=== PATIENT | male | born 1990 | race Caucasian/White ===

== ENCOUNTER 2020-11-04 20:12 | Emergency (ER) | payer OTHER, SELFPAY ==
[2020-11-04 22:43] LABS: Absolute Lymphocytes (CBC) 2.3 K/uL (0.7-4.9); Basophils % 0.8 % (0-1.3); Hematocrit 42.5 % (39.6-49.0); Lymphocytes % 13.6 % (15.3-44.8); MPV 8.6 fL (7.6-11.3); RBC Red Blood Cell Count 5.06 M/uL (4.33-5.43)
[2020-11-04 23:01] LABS: ALT/SGPT 29 U/L (12-78); AST/SGOT 14 U/L (15-37); Albumin 3.7 g/dL (3.4-5.0); Alkaline Phosphatase 119 U/L (45-117); BUN Blood Urea Nitrogen 12 mg/dL (7-18); Bicarbonate 25 mmol/L (21-32); Bilirubin Direct < 0.1 mg/dL (0-0.2); Bilirubin Total 0.2 mg/dL (0.2-1.0); Glucose Level 97 mg/dL (74-106); Lipase 70 U/L (73-393); Magnesium 2.2 mg/dL (1.8-2.4); Potassium 3.9 mmol/L (3.5-5.1); Protein, Total 8.1 g/dL (6.4-8.2); Sodium Level 138 mmol/L (136-145)
[2020-11-04] MEDS ORDERED: ONDANSETRON 4 MG/2 ML VIAL ONE (23:21)
[2020-11-04] MEDS ORDERED: FAMOTIDINE 20 MG/2 ML VIAL IV ONE (23:21)
[2020-11-04] MEDS ORDERED: MORPHINE 4 MG/ML SYR ONE (23:21)
[2020-11-04] MEDS ORDERED: NA CHLORIDE 0.9% 1,000 ML ONE (23:21)
--- NOTE | 2020-11-05 01:05 | ER ---
Nurse's Notes [facility] Name: Alpesh Lancaster Age: 30 yrs Sex: Male : 1990 Arrival Date: 11/04/2020 Time: 20:12 Bed 18 Private MD: Diagnosis: Unspecified abdominal pain Presentation: 11/04 20:28 Chief complaint: Patient states: Mid chest pain for 1 week. Low back pain also. States ll1 when he breathes he smells like poop, and when he vomits it smells like poop. Green, greasy, watery stools. + dizziness. Numb from chest down. States 2 weeks ago he was admitted into [facility] for 4 days for food poisoning and gallbladder problem. Taking budesonide 3mg. Coronavirus screen: Client denies travel out of the [place] in the last 14 days. At this time, the client does not indicate any symptoms associated with coronavirus-19. Ebola Screen: Patient denies travel to an Ebola-affected area in the 21 days before illness onset. Initial Sepsis Screen: Does the patient meet any 2 criteria? HR > 90 bpm. No. Patient's initial sepsis screen is negative. Does the patient have a suspected source of infection? Yes: Acute abdominal pain. Risk Assessment: Do you want to hurt yourself or someone else? Patient reports no desire to harm self or others. Onset of symptoms was October 28, 2020. 20:28 Method Of Arrival: Ambulatory ll1 20:28 Acuity: LUCY 3 ll1 Historical: - Allergies: 20:34 No Known Allergies; ll1 - PMHx: 20:34 gallbladder problems; ll1 - PSHx: 20:34 Appendectomy; ll1 - Immunization history:: Flu vaccine is not up to date. - Social history:: Smoking status: Patient reports the use of cigarette tobacco products, smokes one pack cigarettes per day. Screenin:15 Abuse screen: Denies threats or abuse. Nutritional screening: No deficits noted. jb4 Tuberculosis screening: No symptoms or risk factors identified. Fall Risk None identified. Assessment: 21:20 General: Appears in no apparent distress. uncomfortable, Behavior is calm, cooperative, jb4 appropriate for age. Pain: Complains of pain in abdomen Pain radiates to back Pain currently is 8 out of 10 on a pain scale. Quality of pain is described as burning, stabbing. Neuro: Level of Consciousness is awake, alert, obeys commands, Oriented to person, place, time, situation. Cardiovascular: Patient's skin is warm and dry. Respiratory: Airway is patent Respiratory effort is even, unlabored, Respiratory pattern is regular, symmetrical. GI: Reports upper abdominal pain, diarrhea, nausea, vomiting. : No signs and/or symptoms were reported regarding the genitourinary system. EENT: No signs and/or symptoms were reported regarding the EENT system. Derm: Skin is intact, Skin is pink, warm \T\ dry. Musculoskeletal: Circulation, motion, and sensation intact. Range of motion: intact in all extremities. 22:30 Reassessment: Patient appears in no apparent distress at this time. Patient and/or jb4 family updated on plan of care and expected duration. Pain level reassessed. Patient is alert, oriented x 3, equal unlabored respirations, skin warm/dry/pink. 23:30 Reassessment: Patient appears in no apparent distress at this time. Patient and/or jb4 family updated on plan of care and expected duration. Pain level reassessed. Patient is alert, oriented x 3, equal unlabored respirations, skin warm/dry/pink. 11/05 00:30 Reassessment: Patient appears in no apparent distress at this time. Patient and/or jb4 family updated on plan of care and expected duration. Pain level reassessed. Patient is alert, oriented x 3, equal unlabored respirations, skin warm/dry/pink. 01:30 Reassessment: Pt verbalizes confusion on diagnose, and the need for antibiotics. jb4 Provider notified. Provider at the bedside explaining diagnoses and need for antibiotic medication. 01:45 Reassessment: Patient appears in no apparent distress at this time. Patient and/or jb4 family updated on plan of care and expected duration. Pain level reassessed. Patient is alert, oriented x 3, equal unlabored respirations, skin warm/dry/pink. Vital Signs: 11/04 20:28 BP 144 / 99; Pulse 113; Resp 17; Temp 98.6; Pulse Ox 100% ; Weight 78.93 kg; Height 5 ll1 ft. 7 in. (170.18 cm); Pain 8/10; 23:15 Pulse 99; jb4 23:20 BP 149 / 76; Pulse 99; Resp 16; Pulse Ox 97% on R/A; jb4 11/05 00:45 BP 130 / 67; Pulse 93; Resp 16; Pulse Ox 97% on R/A; jb4 11/04 20:28 Body Mass Index 27.25 (78.93 kg, 170.18 cm) ll1 ED Course: 11/04 20:12 Patient arrived in ED. cl3 20:33 Triage completed. ll1 20:34 Arm band placed on. ll1 20:42 EKG completed in triage. Results shown to MD. ll1 21:14 Ramses Masterson PA is PHCP. cp 21:14 Serafin Alcala MD is Attending Physician. cp 21:20 Patient has correct armband on for positive identification. Placed in gown. Bed in low jb4 position. Call light in reach. Side rails up X 1. 22:08 Miguel Marlow, RN is Primary Nurse. jb4 22:30 Initial lab(s) drawn, by tn, sent to lab. Inserted saline lock: 18 gauge in right jb4 antecubital area, using aseptic technique. Blood collected. 23:19 US Abdomen Limited: liver/gallbladder In Process Unspecified. EDMS 23:59 CT Abd/Pelvis - IV Contrast Only In Process Unspecified. EDMS 11/05 01:04 Blue Townsend MD is Referral Physician. cp 01:30 No provider procedures requiring assistance completed. IV discontinued, intact, jb4 bleeding controlled, No redness/swelling at site. Pressure dressing applied. Administered Medications: 11/04 23:15 Drug: Pepcid 20 mg Route: IVP; Site: right antecubital; jb4 23:15 Drug: NS 0.9% 1000 ml Route: IV; Rate: 1 bolus; Site: right antecubital; jb4 23:16 Drug: Zofran (Ondansetron) 4 mg Route: IVP; Site: right antecubital; jb4 23:18 Drug: morphine 4 mg Route: IVP; Site: right antecubital; jb4 11/05 01:30 Drug: Ciprofloxacin 500 mg Route: PO; jb4 01:44 Not Given (Patient Refused): metroNIDAZOLE 500 mg 100 ml IVPB once over 30 mins jb4 Intake: 11/04 21:00 IV: 1000ml; Total: 1000ml. jb4 Outcome: 11/05 01:05 Discharge ordered by . cp 01:30 Discharged to home ambulatory. jb4 01:30 Condition: stable 01:30 Discharge instructions given to patient, Instructed on discharge instructions, follow up and referral plans. medication usage, Demonstrated understanding of instructions, follow-up care, medications, Prescriptions given X 3. 01:46 Patient left the ED. jb4 Signatures: Dispatcher [employer] EDMS Ramses Masterson PA PA cp Bryson, James, RN RN jb4 Servando Nguyen cl3 Victoria Nguyen RN RN ll1 Corrections: (The following items were deleted from the chart) 11/04 23:36 20:15 General: Appears in no apparent distress. uncomfortable, Behavior is calm, jb4 cooperative, appropriate for age, jb4 23:36 20:15 Pain: Complains of pain in abdomen Pain radiates to back Pain currently is 8 out jb4 of 10 on a pain scale. Quality of pain is described as burning, stabbing, jb4 23:36 20:15 Neuro: Level of Consciousness is awake, alert, obeys commands, Oriented to jb4 person, place, time, situation, jb4 23:36 20:15 Cardiovascular: Patient's skin is warm and dry. jb4 jb4 23:36 20:15 Respiratory: Airway is patent Respiratory effort is even, unlabored, Respiratory jb4 pattern is regular, symmetrical, jb4 23:36 20:15 GI: Reports upper abdominal pain, diarrhea, nausea, vomiting, jb4 jb4 23:36 20:15 : No signs and/or symptoms were reported regarding the genitourinary system. [id number] 23:36 20:15 EENT: No signs and/or symptoms were reported regarding the EENT system. jb4 jb4 23:36 20:15 Derm: Skin is intact, Skin is pink, warm \T\ dry. jb4 jb4 23:36 20:15 Musculoskeletal: Circulation, motion, and sensation intact. Range of motion: jb4 intact in all extremities, jb4 23:36 21:30 Reassessment: Patient appears in no apparent distress at this time. Patient jb4 and/or family updated on plan of care and expected duration. Pain level reassessed. Patient is alert, oriented x 3, equal unlabored respirations, skin warm/dry/pink. jb4
--- NOTE | 2020-11-05 01:05 | EDPHYS ---
Physician Documentation [facility] Name: Alpesh Lancaster Age: 30 yrs Sex: Male : 1990 Arrival Date: 11/04/2020 Time: 20:12 Bed 18 Private MD: ED Physician Serafin Alcala HPI: 11/04 22:00 This 30 yrs old Male presents to ER via Ambulatory with complaints of cp Epigastric and Mid Back Pain. 22:00 The patient presents with abdominal pain in the epigastric area. Onset: The cp symptoms/episode began/occurred 1 week(s) ago. The symptoms radiate to mid back area. Associated signs and symptoms: Pertinent positives: diarrhea, nausea, greasy stools. 22:00 Patient reports being diagnosed with intestinal infection 2 weeks ago while in [facility] and being admitted for 4 days. Currently taking oral budesonide. Historical: - Allergies: 20:34 No Known Allergies; ll1 - PMHx: 20:34 gallbladder problems; ll1 - PSHx: 20:34 Appendectomy; ll1 - Immunization history:: Flu vaccine is not up to date. - Social history:: Smoking status: Patient reports the use of cigarette tobacco products, smokes one pack cigarettes per day. ROS: 22:05 Constitutional: Negative for body aches, chills, fever, poor PO intake. cp 22:05 Eyes: Negative for injury, pain, redness, and discharge. cp 22:05 ENT: Negative for ear pain, sore throat, difficulty swallowing, difficulty handling secretions. 22:05 Cardiovascular: Negative for chest pain, edema, palpitations. 22:05 Respiratory: Negative for cough, shortness of breath, wheezing. 22:05 Abdomen/GI: Positive for abdominal pain, nausea, loose stools, greasy stools, Negative for vomiting, constipation, black/tarry stool, rectal bleeding. 22:05 : Negative for urinary symptoms, testicular pain 22:05 Neuro: Negative for altered mental status, dizziness, headache, weakness. 22:05 All other systems are negative. Exam: 20:45 ECG was reviewed by the Attending Physician. cp 22:10 Constitutional: The patient appears in no acute distress, alert, awake, non-toxic, well cp developed, well nourished. 22:10 Head/Face: Normocephalic, atraumatic. cp 22:10 Eyes: Periorbital structures: appear normal, Conjunctiva: normal, no exudate, no injection, Sclera: no appreciated abnormality, Lids and lashes: appear normal, bilaterally. 22:10 ENT: External ear(s): are unremarkable, Nose: is normal, Mouth: Lips: moist, Oral mucosa: moist, Posterior pharynx: Airway: no evidence of obstruction, patent. 22:10 Chest/axilla: Inspection: normal, Palpation: is normal, no crepitus, no tenderness. 22:10 Cardiovascular: Rate: tachycardic, Rhythm: regular, Edema: is not appreciated, JVD: is not appreciated. 22:10 Respiratory: the patient does not display signs of respiratory distress, Respirations: normal, no use of accessory muscles, no retractions, labored breathing, is not present, Breath sounds: are clear throughout, no decreased breath sounds, no stridor, no wheezing. 22:10 Abdomen/GI: Inspection: abdomen appears normal, Bowel sounds: active, all quadrants, Palpation: soft, in all quadrants, moderate abdominal tenderness, in the epigastric area, rebound tenderness, is not appreciated, involuntary guarding, is not appreciated. 22:10 Back: pain, is absent, ROM is normal. Vital Signs: 20:28 BP 144 / 99; Pulse 113; Resp 17; Temp 98.6; Pulse Ox 100% ; Weight 78.93 kg; Height 5 ll1 ft. 7 in. (170.18 cm); Pain 8/10; 23:15 Pulse 99; jb4 23:20 BP 149 / 76; Pulse 99; Resp 16; Pulse Ox 97% on R/A; jb4 11/05 00:45 BP 130 / 67; Pulse 93; Resp 16; Pulse Ox 97% on R/A; jb4 11/04 20:28 Body Mass Index 27.25 (78.93 kg, 170.18 cm) ll1 MDM: 11/04 21:28 Patient medically screened. cp 23:00 Differential diagnosis: cholecystitis, Cholelithiasis, gastritis, non-specific abd cp pain, pancreatitis, Peptic Ulcer Disease, Perf. Duodenal Ulcer, Perf. Gastric Ulcer, Ureterolithiasis, urinary tract infection. 11/05 01:05 Data reviewed: vital signs, nurses notes, lab test result(s), radiologic studies, CT cp scan. 01:05 Counseling: I had a detailed discussion with the patient and/or guardian regarding: the cp historical points, exam findings, and any diagnostic results supporting the discharge/admit diagnosis, lab results, radiology results, the need for outpatient follow up, for definitive care, a social work therapist, to return to the emergency department if symptoms worsen or persist or if there are any questions or concerns that arise at home. Response to treatment: the patient's symptoms have markedly improved after treatment, VSS. Pain improved. Discussed results of labs and radiology studies, and as a result, I will discharge patient. 11/04 22:05 Order name: Basic Metabolic Panel cp 11/04 22:05 Order name: CBC with Diff cp 11/04 22:05 Order name: Hepatic Function cp 11/04 22:05 Order name: Lipase cp 11/04 22:05 Order name: Magnesium cp 11/04 22:05 Order name: Basic Metabolic Panel; Complete Time: 23:14 EDMS 11/04 22:05 Order name: US Abdomen Limited: liver/gallbladder cp 11/04 22:05 Order name: Liver (Hepatic) Function; Complete Time: 23:14 EDMS 11/04 23:14 Interpretation: Normal except: AST 14; ALK 119; GLOB 4.4; A/G 0.8. cp 11/04 22:05 Order name: CBC with Automated Diff; Complete Time: 23:14 EDMS 11/04 23:14 Interpretation: Normal except: WBC 17.20; AUDREY% 77.2; LYM% 13.6; NEUT A 13.3. cp 11/04 22:05 Order name: Lipase; Complete Time: 23:14 EDMS 11/04 22:05 Order name: Magnesium; Complete Time: 23:14 EDMS 11/04 22:38 Order name: CT Abd/Pelvis - IV Contrast Only cp 11/04 22:05 Order name: IV Saline Lock; Complete Time: 22:42 cp 11/04 22:05 Order name: Labs collected and sent; Complete Time: 22:42 cp 11/05 00:59 Order name: PO challenge; Complete Time: 01:44 cp EC/13 20:45 Rate is 119 beats/min. Rhythm is regular. NH interval is normal. QRS interval is cp normal. QT interval is normal. Interpreted by me. Reviewed by me. Administered Medications: 23:15 Drug: Pepcid 20 mg Route: IVP; Site: right antecubital; jb4 23:15 Drug: NS 0.9% 1000 ml Route: IV; Rate: 1 bolus; Site: right antecubital; jb4 23:16 Drug: Zofran (Ondansetron) 4 mg Route: IVP; Site: right antecubital; jb4 23:18 Drug: morphine 4 mg Route: IVP; Site: right antecubital; jb4 11/05 01:30 Drug: Ciprofloxacin 500 mg Route: PO; jb4 01:44 Not Given (Patient Refused): metroNIDAZOLE 500 mg 100 ml IVPB once over 30 mins jb4 Disposition: 06:47 Co-signature as Attending Physician, Serafin Alcala MD. rn Disposition: 11/05/20 01:05 Discharged to Home. Impression: Unspecified abdominal pain. - Condition is Stable. - Discharge Instructions: Abdominal Pain, Adult. - Prescriptions for Cipro 500 mg Oral Tablet - take 1 tablet by ORAL route every 12 hours for 10 days; 20 tablet. Metronidazole 500 mg Oral Tablet - take 1 tablet by ORAL route every 8 hours; 30 tablet. Bentyl 20 mg Oral Tablet - take 2 tablet by ORAL route every 6 hours As needed; 40 tablet. Zofran 4 mg Oral Tablet - take 1 tablet by ORAL route every 12 hours As needed; 20 tablet. - Medication Reconciliation Form, Thank You Letter, Antibiotic Education, Prescription Opioid Use form. - Follow up: Blue Townsend MD; When: 2 - 3 days; Reason: Recheck today's complaints. - Problem is new. - Symptoms have improved. Signatures: Dispatcher [employer] EDMS Serafin Alcala MD MD rn Page, Corey, PA PA cp Bryson, James RN RN jb4 Victoria Nguyen RN RN ll1 Corrections: (The following items were deleted from the chart) 11/04 22:22 22:00 This 30 yrs old Male presents to ER via Ambulatory with complaints of cp Back Pain, Chest Pain. cp 11/05 01:46 01:05 11/05/2020 01:05 Discharged to Home. Impression: Unspecified abdominal pain. jb4 Condition is Stable. Forms are Medication Reconciliation Form, Thank You Letter, Antibiotic Education, Prescription Opioid Use. Follow up: Blue Townsend; When: 2 - 3 days; Reason: Recheck today's complaints. Problem is new. Symptoms have improved. cp
[2020-11-05] MEDS ORDERED: METRONIDAZOLE 500mg IVPB 0 MG/0 ML BAG IV ONE (01:29)
[2020-11-05] MEDS ORDERED: CIPROFLOXACIN HCL 500 MG TAB ONE (01:29)
[2020-11-05 01:53] VITALS: TEMP 98.6
[2020-11-05 01:55] VITALS: O2SAT 97
[2020-11-05 01:56] VITALS: BP 130/67
[2020-11-05] MEDS ORDERED: NA CHLORIDE 0.9% 0 ML ONE (03:35)
--- NOTE | 2020-11-05 10:28 | RAD REPORT ---
EXAM DESCRIPTION: US - Abdomen Exam Limited - 11/04/2020 11:19 pm CLINICAL HISTORY: ABD PAIN Preliminary findings provided at the time of the study. COMPARISON: No comparisons FINDINGS: Gallbladder is tightly contracted. This accentuates wall thickness. No pericholecystic flu id seen. Gallbladder lumen assessment is limited. However, and this tightly contracted state, no larg e gallstones are present. Small amount of sludge or small sandlike stones could possibly be occult. No common duct stone or biliary tree dilatation identified. IMPRESSION: Gallbladder is tightly contracted. This limits full evaluation of small amounts of slud ge or sandlike stones. No large stones are present. No biliary tree abnormality.
--- NOTE | 2020-11-06 14:16 | RAD REPORT ---
EXAM DESCRIPTION: CT - Abdomen Pelvis W Contrast - 11/05/2020 6:27 am COMPARISON: None. CLINICAL HISTORY: [facility] MAIN EPIGASTRIC PAIN TECHNIQUE: CT of the abdomen and pelvis was acquired with IV contrast material. Coronal and sagitt al reconstructions were obtained. Automated exposure control was utilized on this examination as a dose lowering technique. FINDINGS: Lung bases: Clear. Liver: Normal. Gallbladder and biliary: Normal gallbladder. Unremarkable biliary tree. Pancreas: Normal. Spleen: Normal. Adrenal glands: Normal adrenal glands. Kidneys: Normal kidneys Stomach and Small Bowel: The stomach is normal. There is focal bowel wall thickening in the jejunum w ith mild proximal bowel dilatation. There is wall thickening and enhancement of the ileum. Urinary bladder: Normal. Prostate/Male Urogenital: Normal. Colon and Appendix: The colon is unremarkable. Appendectomy. Retroperitoneum and lymph nodes: Right lower quadrant lymph nodes are increased in number and measure up to 1.1 cm short axis. Vascular: Mild atherosclerosis. Peritoneal cavity: No ascites or free air. Musculoskeletal and soft tissues: Soft tissues are unremarkable. No aggressive bone lesions. No com pression fracture. IMPRESSION: 1. Wall thickening of several loops of small bowel in the jejunum and ileum with enhance ment of the ileum wall. These findings are consistent with infectious or inflammatory enteritis. Croh n's disease is in the differential. Right lower quadrant lymph nodes are likely reactive. 2. Mild atherosclerosis of the aorta. Electronically signed by: Lalito Smith MD 11/05/2020 12:11 AM ASSOCIATE RESEARCH SCIENTIST Due to temporary technical issues with the PACS/Fluency reporting system, reports are being signed by the in house radiologists without review as a courtesy to insure prompt reporting. The interpreting radiologist is fully responsible for the content of the report.
== END 2020-11-05 01:46 | disposition home or self-care (01) ==
LOC: ER 20:12
DX: R10.13 Epigastric pain (principal); F17.210 Nicotine dependence, cigarettes, uncomplicated
CPT/HCPCS: 36415; 74177; 76705; 80048; 80076; 83690; 83735; 85025; 93005; 96374; 96375; 99284; J2405; J7030; Q9967

== ENCOUNTER 2021-08-30 12:53 | Emergency (ER) | payer BC, SELFPAY ==
[2021-08-30] MEDS ORDERED: HYDROCODONE/APAP 5/325 MG TAB ONE (14:18)
[2021-08-30] MEDS ORDERED: TETANUS & DIPHTHERIA TOX,ADULT 0.5 ML VIAL ONE (14:19)
--- NOTE | 2021-08-30 15:07 | EDPHYS ---
Physician Documentation [facility] Name: Alpesh Lancaster Age: 31 yrs Sex: Male : 1990 Arrival Date: 08/30/2021 Time: 12:58 Bed Waiting Private MD: ED Physician Feng Thapa HPI: 08/30 14:15 This 31 yrs old Male presents to ER via Ambulatory with complaints of Infected finger. ma2 14:15 The patient or guardian reports a contusion. Onset: The symptoms/episode began/occurred ma2 suddenly, 5 day(s) ago. Associated signs and symptoms: Pertinent negatives: fever, numbness distally, vomiting. Severity of symptoms: At their worst the symptoms were very mild, in the emergency department the symptoms are unchanged. The patient has not experienced similar symptoms in the past. Patient smashed right index finger at the nail, 5 days ago here with nail pain, mild redness, no swelling or warmth.. Historical: - Allergies: 14:06 No Known Allergies; iw - Home Meds: 14:06 None [Active]; iw - PMHx: 14:06 gallbladder problems; iw - PSHx: 14:06 Appendectomy; iw - Immunization history:: Last tetanus immunization: unknown. - Social history:: Patient/guardian denies using alcohol, street drugs, The patient lives with family. - Family history:: not pertinent. ROS: 14:15 Constitutional: Negative for fever, chills, and weight loss. ma2 14:15 All other systems are negative. Exam: 14:15 Constitutional: This is a well developed, well nourished patient who is awake, alert, ma2 and in no acute distress. ENT: Nares patent. No nasal discharge, no septal abnormalities noted. Tympanic membranes are normal and external auditory canals are clear. Oropharynx with no redness, swelling, or masses, exudates, or evidence of obstruction, uvula midline. Mucous membranes moist. Neck: Trachea midline, no thyromegaly or masses palpated, and no cervical lymphadenopathy. Supple, full range of motion without nuchal rigidity, or vertebral point tenderness. No Meningismus. Chest/axilla: Normal chest wall appearance and motion. Nontender with no deformity. No lesions are appreciated. Cardiovascular: Regular rate and rhythm with a normal S1 and S2. No gallops, murmurs, or rubs. Normal PMI, no JVD. No pulse deficits. Respiratory: Lungs have equal breath sounds bilaterally, clear to auscultation and percussion. No rales, rhonchi or wheezes noted. No increased work of breathing, no retractions or nasal flaring. Abdomen/GI: Soft, non-tender, with normal bowel sounds. No distension or tympany. No guarding or rebound. No evidence of tenderness throughout. Skin: Warm, dry with normal turgor. Normal color with no rashes, no lesions, and no evidence of cellulitis. MS/ Extremity: Contusion of the right third distal digit, there is no warmth, or lump with fluctuance, otherwise pulses equal, no cyanosis. Neurovascular intact. Full, normal range of motion. Neuro: Awake and alert, GCS 15, oriented to person, place, time, and situation. Cranial nerves II-XII grossly intact. Motor strength 5/5 in all extremities. Sensory grossly intact. Cerebellar exam normal. Normal gait. Vital Signs: 14:04 BP 116 / 98; Pulse 91; Resp 16; Temp 98.0; Pulse Ox 100% on R/A; iw MDM: 14:15 Differential diagnosis: open fracture, closed fracture, contusion, abrasion, tendonitis.ma2 15:06 Data reviewed: vital signs, nurses notes, EMS record. Counseling: I had a detailed ma2 discussion with the patient and/or guardian regarding: the historical points, exam findings, and any diagnostic results supporting the discharge/admit diagnosis, the presence of at least one elevated blood pressure reading (>120/80) during this emergency department visit, the need for outpatient follow up. Response to treatment: the patient's symptoms have markedly improved after treatment. 15:07 Patient medically screened. ma2 08/30 14:14 Order name: Hand Right 3 View XRAY ma2 Administered Medications: 14:22 Drug: Tetanus-Diphtheria Toxoid Adult 0.5 ml {Bag Bundler: [employer]. Exp: iw 01/05/2023. Lot #: [id number]. } Route: IM; Site: right deltoid; 15:31 Follow up: Response: No adverse reaction vg1 14:22 Drug: HYDROcodone-acetaminophen 5 mg-325 mg 1 tabs Route: PO; iw 15:31 Follow up: Response: No adverse reaction; Pain is decreased vg1 14:23 Drug: Clindamycin 300 mg Route: PO; iw 15:30 Follow up: Response: No adverse reaction vg1 Disposition Summary: 08/30/21 15:07 Discharge Ordered Location: Home ma2 Condition: Stable ma2 Diagnosis - Cellulitis of finger - right index ma2 Followup: ma2 - With: Private Physician - When: Tomorrow - Reason: If symptoms return, Continuance of care Discharge Instructions: - Discharge Summary Sheet ma2 - Cellulitis, Adult, [id number] ma2 Forms: - Medication Reconciliation Form ma2 - Thank You Letter ma2 - Antibiotic Education ma2 - Prescription Opioid Use ma2 Prescriptions: - Clindamycin HCl 300 mg Oral Capsule - take 1 capsule by ORAL route every 6 hours for 10 days; 40 capsule; Refills: 0, ma2 Product Selection Permitted - Diclofenac Sodium 75 mg Oral Tablet Sustained Release - take 1 tablet by ORAL route 2 times per day; 30 tablet; Refills: 0, Product ma2 Selection Permitted Signatures: Dispatcher [employer] Liza Parsons, MELLISA RN Feng Thapa MD MD ma2 Rosaura Dennis RN vg1 Corrections: (The following items were deleted from the chart) 14:07 14:06 PSHx: None; iw
--- NOTE | 2021-08-30 15:07 | ER ---
Nurse's Notes [facility] Name: Alpesh Lancaster Age: 31 yrs Sex: Male : 1990 Arrival Date: 08/30/2021 Time: 12:58 Bed Waiting Private MD: Diagnosis: Cellulitis of finger-right index Presentation: 08/30 14:04 Chief complaint: Patient states: smashed his right index finger between a piece of iw equipment two weeks ago, has not been able to see a doctor since then, has pain and swelling to tip of finger, pus came out of it yesterday when he clipped his nail. Coronavirus screen: At this time, the client does not indicate any symptoms associated with coronavirus-19. Ebola Screen: Patient negative for fever greater than or equal to 101.5 degrees Fahrenheit, and additional compatible Ebola Virus Disease symptoms Patient denies exposure to infectious person. Patient denies travel to an Ebola-affected area in the 21 days before illness onset. No symptoms or risks identified at this time. Initial Sepsis Screen: Does the patient meet any 2 criteria? No. Patient's initial sepsis screen is negative. Does the patient have a suspected source of infection? No. Patient's initial sepsis screen is negative. Risk Assessment: Do you want to hurt yourself or someone else? Patient reports no desire to harm self or others. Onset of symptoms was August 19, 2021. 14:04 Method Of Arrival: Ambulatory iw 14:07 Acuity: LUCY 4 iw Historical: - Allergies: 14:06 No Known Allergies; iw - Home Meds: 14:06 None [Active]; iw - PMHx: 14:06 gallbladder problems; iw - PSHx: 14:06 Appendectomy; iw - Immunization history:: Last tetanus immunization: unknown. - Social history:: Patient/guardian denies using alcohol, street drugs, The patient lives with family. - Family history:: not pertinent. Screenin:25 Abuse screen: Denies threats or abuse. Denies injuries from another. Nutritional iw screening: No deficits noted. Tuberculosis screening: No symptoms or risk factors identified. Fall Risk None identified. Assessment: 14:24 General: Appears in no apparent distress. Behavior is calm, cooperative. Pain: iw Complains of pain in dorsal aspect of distal phalanx of right ring finger and palmar aspect of distal phalanx of right index finger. Neuro: Level of Consciousness is awake, alert, obeys commands, Oriented to person, place, time, situation, Moves all extremities. Full function. Cardiovascular: Capillary refill < 3 seconds Patient's skin is warm and dry. Respiratory: Respiratory effort is even, unlabored, Respiratory pattern is regular, symmetrical. Derm: Skin is intact, is healthy with good turgor. Musculoskeletal: Range of motion: intact in all extremities. Vital Signs: 14:04 BP 116 / 98; Pulse 91; Resp 16; Temp 98.0; Pulse Ox 100% on R/A; iw ED Course: 12:58 Patient arrived in ED. mr 14:07 Triage completed. iw 14:07 Arm band placed on. iw 14:14 Feng Thapa MD is Attending Physician. [facility] 14:22 Liza Jmi RN is Primary Nurse. iw 14:59 Hand Right 3 View XRAY In Process Unspecified. EDMS 15:35 No provider procedures requiring assistance completed. Patient did not have IV access vg1 during this emergency room visit. 15:36 Patient has correct armband on for positive identification. 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 Exp: 01/05/2023. Lot #: [id number]. } Route: IM; Site: right deltoid; 15:31 Follow up: Response: No adverse reaction vg1 14:22 Drug: HYDROcodone-acetaminophen 5 mg-325 mg 1 tabs Route: PO; iw 15:31 Follow up: Response: No adverse reaction; Pain is decreased vg1 14:23 Drug: Clindamycin 300 mg Route: PO; iw 15:30 Follow up: Response: No adverse reaction vg1 Outcome: 15:07 Discharge ordered by . ma2 15:35 Discharged to home ambulatory, with family. vg1 15:35 Condition: good 15:35 Discharge instructions given to patient, family, Instructed on discharge instructions, follow up and referral plans. medication usage, Demonstrated understanding of instructions, follow-up care, medications, Prescriptions given X 2. 15:36 Patient left the ED. vg1 Signatures: Dispatcher [employer] [facility] Sharlene Oshea mr Liza Jim, RN RN Feng Thapa MD MD ma2 Garcia Rosaura, RN RN vg1 Corrections: (The following items were deleted from the chart) 14:06 PSHx: None; iw iw 14: 14:04 BP 116 / 98; Pulse 91bpm; Resp 16bpm; Pulse Ox 100% RA; iw iw
--- NOTE | 2021-08-30 15:14 | RAD REPORT ---
EXAM DESCRIPTION: RAD - Hand Right 3 View - 08/30/2021 2:59 pm CLINICAL HISTORY: PAIN, persistent pain following trauma 1 week earlier, specific site of injury not indicated, prior history of thumb fracture COMPARISON: No comparisons FINDINGS: No acute or subacute fracture changes seen. There is no dislocation or periosteal reaction noted. No joint space narrowing or acute joint finding identifiable. Hyperdense material is seen yudith ng the nail bed of the first and second digits believed to be dirt or other skin contaminant. No fore ign body or significant soft tissue abnormality. IMPRESSION: Negative right hand examination for acute or subacute bone process.
[2021-08-30 15:42] VITALS: BP 116/98; TEMP 98; O2SAT 100
== END 2021-08-30 15:36 | disposition home or self-care (01) ==
LOC: ER 12:53
DX: L03.011 Cellulitis of right finger (principal); Z23 Encounter for immunization
CPT/HCPCS: 90471; 90714; 99283

== ENCOUNTER 2022-04-15 19:46 | Emergency (ER) | payer BC ==
--- NOTE | 2022-04-15 22:15 | RAD REPORT ---
EXAM DESCRIPTION: RAD - Shoulder Right 2 View - 04/15/2022 10:04 pm CLINICAL HISTORY: Right shoulder pain FINDINGS: No fracture or dislocation is seen. No bone or joint abnormality noted
[2022-04-15 23:39] LABS: Absolute Lymphocytes (CBC) 3.6 K/uL (0.7-4.9); Hematocrit 39.1 % (39.6-49.0); Lymphocytes % 39.3 % (15.3-44.8); MCV 89.6 fL (80-100); MPV 8.1 fL (7.6-11.3); RBC Red Blood Cell Count 4.36 M/uL (4.33-5.43)
[2022-04-15 23:51] LABS: ALT/SGPT 24 U/L (12-78); AST/SGOT 8 U/L (15-37); Albumin 3.4 g/dL (3.4-5.0); Alkaline Phosphatase 76 U/L (45-117); BUN Blood Urea Nitrogen 12 mg/dL (7-18); Bicarbonate 30 mmol/L (21-32); Bilirubin Total < 0.1 mg/dL (0.2-1.0); Glomerular Filtration Rate 119 ml/min (=/>90); Glucose Level 125 mg/dL (74-106); Lipase 90 U/L (73-393); Potassium 3.9 mmol/L (3.5-5.1); Protein, Total 6.9 g/dL (6.4-8.2); Sodium Level 141 mmol/L (136-145); Troponin High Sensitivity 3.3 pg/mL (<58.9)
--- NOTE | 2022-04-16 02:01 | ER ---
Nurse's Notes [facility] Name: Alpesh Lancaster Age: 31 yrs Sex: Male : 1990 Arrival Date: 04/15/2022 Time: 19:56 Bed 12 Private MD: Diagnosis: Chest pain, unspecified;Abdominal pain, unspecified Presentation: 04/15 20:22 Chief complaint: Patient states: Pt reports feeling unwell for the last 2 months. kb3 States he has pain in his right upper chest that radiates into right scapula. Pt reports vomiting after eating with "gooey" chalk-colored stool. Coronavirus screen: Vaccine status: Patient reports being unvaccinated. Client denies travel out of the [place] in the last 14 days. Ebola Screen: Patient negative for fever greater than or equal to 101.5 degrees Fahrenheit, and additional compatible Ebola Virus Disease symptoms Patient denies exposure to infectious person. Patient denies travel to an Ebola-affected area in the 21 days before illness onset. No symptoms or risks identified at this time. Initial Sepsis Screen: Does the patient meet any 2 criteria? No. Patient's initial sepsis screen is negative. Does the patient have a suspected source of infection? No. Patient's initial sepsis screen is negative. Risk Assessment: Do you want to hurt yourself or someone else? Patient reports no desire to harm self or others. Onset of symptoms is unknown. 20:22 Method Of Arrival: Ambulatory kb3 20:22 Acuity: LUCY 3 kb3 Triage Assessment: 20:25 General: Appears in no apparent distress. comfortable, Behavior is calm, cooperative. kb3 Pain: Complains of pain in anterior aspect of right upper chest Pain radiates to right scapular area Pain currently is 10 out of 10 on a pain scale. Quality of pain is described as burning. GI: Reports nausea, vomiting. Historical: - Allergies: 20:25 No Known Allergies; kb3 - Home Meds: 20:25 None [Active]; kb3 - PMHx: 20:25 gallbladder problems; kb3 - PSHx: 20:25 Appendectomy; kb3 - Immunization history:: Adult Immunizations up to date, Client reports having NOT received the Covid vaccine. Last tetanus immunization: up to date. - Social history:: Smoking status: Patient reports the use of cigarette tobacco products, denies chronic smoking, but will smoke occasionally, Patient uses alcohol, only on a social basis. Patient/guardian denies using street drugs. Screenin:30 Abuse screen: Denies threats or abuse. Denies injuries from another. Nutritional tw5 screening: No deficits noted. Tuberculosis screening: No symptoms or risk factors identified. Fall Risk None identified. Assessment: 23:25 General: Reports "I just need someone to take out my gallbladder. I have been dealing tw5 with this pain for years now and it is only getting worse. It has gotten to the point I cannot even taste anything normal everything tastes like crap, literally. This is a miserable.". 23:30 Pain: Complains of pain in diaphragm Pain radiates to right supraclavicular area, right tw5 clavicle and anterior aspect of right upper chest Pain currently is 10 out of 10 on a pain scale. Cardiovascular: Capillary refill < 3 seconds Rhythm is sinus rhythm. Respiratory: Airway is patent Trachea midline. 04/16 02:24 GI: Bowel sounds present X 4 quads. Abdomen is tender to palpation in epigastric area tw5 and right upper quadrant. Vital Signs: 04/15 20:22 BP 138 / 80; Pulse 91; Resp 18; Temp 99.1; Pulse Ox 100% ; Weight 81.65 kg; Height 5 kb3 ft. 8 in. (172.72 cm); Pain 10/10; 23:30 BP 123 / 73; Pulse 80; Resp 18; Pulse Ox 100% on R/A; tw5 20:22 Body Mass Index 27.37 (81.65 kg, 172.72 cm) kb3 ED Course: 19:56 Patient arrived in ED. jj6 20:25 Triage completed. kb3 20:25 Arm band placed on right wrist. kb3 20:40 Ramses Masterson PA is PHCP. cp 20:40 Ramses Paul MD is Attending Physician. cp 21:25 Arlen Fink is Primary Nurse. tw5 22:07 XRAY Shoulder RIGHT 2 view In Process Unspecified. EDMS 23:30 Patient has correct armband on for positive identification. Placed in gown. Bed in low tw5 position. Call light in reach. Side rails up X 1. Pulse ox on. NIBP on. Door closed. Warm blanket given. Verbal reassurance given. 23:30 Initial lab(s) drawn, by me, sent to lab. Inserted saline lock: 20 gauge in right tw5 antecubital area, using aseptic technique. Blood collected. 23:33 CBC with Diff Sent. tw 23:33 CMP Sent. tw5 23:33 Lipase Sent. tw5 04/16 00:03 CT Abd/Pelvis - IV Contrast Only In Process Unspecified. EDMS 02:00 Blue Townsend MD is Referral Physician. cp 02:23 No provider procedures requiring assistance completed. IV discontinued, intact, tw5 bleeding controlled, No redness/swelling at site. Pressure dressing applied. Administered Medications: No medications were administered Medication: 04/15 23:30 VIS not applicable for this client. tw Outcome: 04/16 02:01 Discharge ordered by . cp 02:24 Discharged to home ambulatory. tw5 02:24 Condition: good 02:24 Discharge instructions given to patient, Instructed on discharge instructions, follow up and referral plans. Demonstrated understanding of instructions, follow-up care, medications, Prescriptions given X 2. 02:24 Patient left the ED. tw Signatures: Dispatcher [employer] EDCO Ramses Masterson PA PA cp Wood, Tiffany tw Justina Mancia jj6 Kalpana Jorgensen, RN RN kb3 Corrections: (The following items were deleted from the chart) 04/15 23:32 23:25 General: Reports tw5 tw
--- NOTE | 2022-04-16 02:01 | EDPHYS ---
Physician Documentation [facility] Name: Alpesh Lancaster Age: 31 yrs Sex: Male : 1990 Arrival Date: 04/15/2022 Time: 19:56 Bed 12 Private MD: ED Physician Ramses Paul HPI: 04/15 21:45 This 31 yrs old Male presents to ER via Ambulatory with complaints of Abdominal Pain, cp Bloody Stools, Abnormal Taste. 21:45 The patient presents with abdominal pain in the upper abdomen. Onset: The cp symptoms/episode began/occurred 2 month(s) ago. 21:45 Associated signs and symptoms: Pertinent positives: vomiting after eating, chalky cp colored stool. 21:45 Patient reports he was hospitalized and treated for infected gallbladder in the past. cp Historical: - Allergies: 20:25 No Known Allergies; kb3 - Home Meds: 20:25 None [Active]; kb3 - PMHx: 20:25 gallbladder problems; kb3 - PSHx: 20:25 Appendectomy; kb3 - Immunization history:: Adult Immunizations up to date, Client reports having NOT received the Covid vaccine. Last tetanus immunization: up to date. - Social history:: Smoking status: Patient reports the use of cigarette tobacco products, denies chronic smoking, but will smoke occasionally, Patient uses alcohol, only on a social basis. Patient/guardian denies using street drugs. ROS: 21:50 Constitutional: Positive for weight loss, Negative for body aches, chills, fever, poor cp PO intake. 21:50 Cardiovascular: Negative for chest pain, edema, palpitations. cp 21:50 Respiratory: Negative for cough, shortness of breath, wheezing. 21:50 Abdomen/GI: Positive for abdominal pain. 21:50 MS/extremity: Positive for pain, of the right shoulder, Negative for injury or acute deformity, decreased range of motion, paresthesias. 21:50 Eyes: Negative for injury, pain, redness, and discharge. cp 21:50 ENT: Negative for drainage from ear(s), ear pain, sore throat, difficulty swallowing, cp difficulty handling secretions. 21:50 Neuro: Negative for altered mental status, headache, syncope. 21:50 All other systems are negative. Exam: 21:55 Constitutional: The patient appears in no acute distress, alert, awake, comfortable, cp non-diaphoretic, non-toxic, well developed, well nourished. 21:55 Head/Face: Normocephalic, atraumatic. cp 21:55 Eyes: Periorbital structures: appear normal, Conjunctiva: normal, no exudate, no injection, Sclera: no appreciated abnormality, Lids and lashes: appear normal, bilaterally. 21:55 ENT: External ear(s): are unremarkable, Nose: is normal, Mouth: Lips: moist, Oral mucosa: moist, Posterior pharynx: Airway: no evidence of obstruction, patent. 21:55 Neck: ROM/movement: is normal, is supple, without pain, no range of motions limitations. 21:55 Chest/axilla: Inspection: normal, Palpation: is normal, no crepitus, no tenderness. 21:55 Cardiovascular: Rate: normal, Rhythm: regular, Edema: is not appreciated, JVD: is not appreciated. 21:55 Respiratory: the patient does not display signs of respiratory distress, Respirations: normal, no use of accessory muscles, no retractions, labored breathing, is not present, Breath sounds: are clear throughout, no decreased breath sounds, no stridor, no wheezing. 21:55 Abdomen/GI: Inspection: abdomen appears normal, Bowel sounds: active, all quadrants, Palpation: abdomen is soft and non-tender, in all quadrants, rebound tenderness, is not appreciated, voluntary guarding, is not appreciated, involuntary guarding, is not appreciated. 21:55 Back: CVA tenderness, is absent. 21:55 Neuro: Orientation: to person, place \T\ time. Mentation: is normal, Motor: moves all fours, strength is normal, Sensation: is normal. 23:20 ECG was reviewed by the Attending Physician. cp Vital Signs: 20:22 BP 138 / 80; Pulse 91; Resp 18; Temp 99.1; Pulse Ox 100% ; Weight 81.65 kg; Height 5 kb3 ft. 8 in. (172.72 cm); Pain 10/10; 23:30 BP 123 / 73; Pulse 80; Resp 18; Pulse Ox 100% on R/A; tw5 20:22 Body Mass Index 27.37 (81.65 kg, 172.72 cm) kb3 MDM: 21:25 Patient medically screened. cp 04/16 02:00 Data reviewed: vital signs, nurses notes, lab test result(s), EKG, radiologic studies, cp CT scan. 02:00 Test interpretation: by ED physician or midlevel provider: ECG, plain radiologic cp studies. Counseling: I had a detailed discussion with the patient and/or guardian regarding: the historical points, exam findings, and any diagnostic results supporting the discharge/admit diagnosis, lab results, radiology results, the need for outpatient follow up, a family practitioner, a medical researcher, to return to the emergency department if symptoms worsen or persist or if there are any questions or concerns that arise at home. Special discussion: Based on the patient's Hx, exam, and Dx evaluation, there is no indication for emergent surgery or inpatient Tx. It is understood by the patient/guardian that if the Sx's persist or worsen they need to return immediately for re-evaluation. 04/15 21:40 Order name: CBC with Diff; Complete Time: 00:44 04/16 00:44 Interpretation: Normal except: HGB 13.1; HCT 39.1; MCV 89.6. 04/15 21:40 Order name: CMP; Complete Time: 00:44 04/16 00:45 Interpretation: Normal except: CL 109; GLUC 125; CA 8.3. 04/15 21:40 Order name: Lipase; Complete Time: 00:44 04/16 00:45 Interpretation: Reviewed. 04/15 21:40 Order name: Urine Microscopic Only cp 04/15 21:40 Order name: Troponin HS; Complete Time: 00:44 cp 04/16 00:39 Order name: CREATININE WHOLE BLOOD; Complete Time: 00:44 EDMS 04/15 21:40 Order name: IV Saline Lock; Complete Time: 23:33 cp 04/15 21:40 Order name: Labs collected and sent; Complete Time: 23:33 cp 04/15 21:40 Order name: Urine Dipstick-Ancillary (obtain specimen); Complete Time: 02:03 04/15 21:40 Order name: EKG; Complete Time: 21:41 cp 04/15 21:40 Order name: EKG - Nurse/Tech; Complete Time: 23:33 cp 04/15 21:40 Order name: XRAY Shoulder RIGHT 2 view; Complete Time: 00:44 04/16 00:45 Interpretation: Reviewed. cp 04/15 22:07 Order name: CT Abd/Pelvis - IV Contrast Only cp 04/16 02:05 Order name: Urine Dipstick-Ancillary; Complete Time: 02:13 EDMS EC/22 23:20 Rate is 73 beats/min. Rhythm is regular. IN interval is normal. QRS interval is normal. cp QT interval is normal. T waves are Inverted in lead aVR. Interpreted by me. Reviewed by me. Administered Medications: No medications were administered Disposition Summary: 04/16/22 02:01 Discharge Ordered Location: Home cp Problem: an ongoing problem cp Symptoms: are unchanged cp Condition: Stable cp Diagnosis - Chest pain, unspecified cp - Abdominal pain, unspecified cp Followup: cp - With: Private Physician - When: 2 - 3 days - Reason: Recheck today's complaints Followup: cp - With: Blue Townsend MD - When: 2 - 3 days - Reason: Recheck today's complaints Discharge Instructions: - Discharge Summary Sheet cp - Abdominal Pain, Adult cp - Nonspecific Chest Pain, Adult cp - Gallbladder Nuclear Scan cp Forms: - Medication Reconciliation Form cp - Thank You Letter cp - Antibiotic Education cp - Prescription Opioid Use cp Prescriptions: - Protonix 40 mg Oral Tablet - take 1 tablet by ORAL route once daily; 30 tablet; Refills: 0, Product cp Selection Permitted - Zofran 4 mg Oral Tablet - take 1 tablet by ORAL route every 12 hours As needed; 20 tablet; Refills: 0, cp Product Selection Permitted Signatures: Dispatcher [employer] EDMS Ramses Masterson PA PA cp Bradberry, Kelly, RN RN kb3
[2022-04-16 02:05] LABS: Urine Blood Trace-lysed (Negative); Urine Glucose Negative (Negative); Urine Protein Negative (Negative); Urine Specific Gravity >=1.030 (1.005-1.030)
[2022-04-16 02:30] LABS: Urine Bacteria <20 /HPF (<20); Urine RBC <5 /HPF (None Seen)
[2022-04-16 05:19] VITALS: TEMP 99.1; O2SAT 100
[2022-04-16 05:21] VITALS: BP 123/73
--- NOTE | 2022-04-16 10:11 | RAD REPORT ---
EXAM DESCRIPTION: CT - Abdomen Pelvis W Contrast - 04/16/2022 6:45 am CLINICAL HISTORY: The patient is 31 years old and is Male; diarrhea TECHNIQUE: Axial computed tomography images of the abdomen and pelvis with intravenous contrast. S agittal and coronal reformatted images were created and reviewed. This CT exam was performed using one or more of the following dose reduction techniques: automated exposure control, adjustment of t he mA and/or kV according to patient size, and/or use of iterative reconstruction technique. COMPARISON: November 04, 2020. FINDINGS: Lung bases: Unremarkable. No mass. No consolidation. ABDOMEN: Liver: Unremarkable. No mass. Gallbladder and bile ducts: Unremarkable. No calcified stones. No ductal dilation. Pancreas: Unremarkable. No mass. No ductal dilation. Spleen: Unremarkable. No splenomegaly. Adrenals: Unremarkable. No mass. Kidneys and ureters: Unremarkable. No solid mass. No hydronephrosis. Stomach and bowel: There may be some mucosal thickening involving the small bowel in the upper ab domen. Scattered colonic diverticula. No obstruction. PELVIS: Appendix: Postsurgical changes in the right lower quadrant which may relate to prior appendectomy . Bladder: Unremarkable. No mass. Reproductive: Unremarkable as visualized. ABDOMEN and PELVIS: Intraperitoneal space: Unremarkable. No free air. No significant fluid collection. Bones/joints: Disc bulges in the lower lumbar spine. No acute fracture. No dislocation. Soft tissues: Unremarkable. Vasculature: Unremarkable. No abdominal aortic aneurysm. Lymph nodes: Unremarkable. No enlarged lymph nodes. IMPRESSION: There may be some mucosal thickening involving the small bowel in the upper abdomen. C orrelate with any concern for enteritis. Electronically signed by: Rusty Pete MD 04/16/2022 12:55 AM CDT Due to temporary technical issues with the PACS/Fluency reporting system, reports are being signed by the in house radiologists without review as a courtesy to insure prompt reporting. The interpreting radiologist is fully responsible for the content of the report
--- NOTE | 2022-04-16 13:49 | EKG ---
Test Date: 2022-04-15 Test Time: 23:14:06 Cook Larder: MEASUREMENT RESULTS: Intervals: Rate: 73 MI: 154 QRSD: 80 QT: 370 QTc: 407 [place]: P: 41 MI: 154 QRS: 47 T: 41 INTERPRETIVE STATEMENTS: Normal sinus rhythm Normal ECG Compared to ECG 11/04/2020 20:40:40 Sinus tachycardia no longer present Electronically Signed On 04-16-22 13:48:00 CDT by Justin Agosto
== END 2022-04-16 02:24 | disposition home or self-care (01) ==
LOC: ER 19:46
DX: R07.9 Chest pain, unspecified (principal); R10.10 Upper abdominal pain, unspecified; F17.210 Nicotine dependence, cigarettes, uncomplicated
CPT/HCPCS: 93005; 85025; 36415; 82565; 84484; 83690; 80053; 74177; 73030; Q9967; 81003; 81015; 99284

== ENCOUNTER 2022-07-26 17:55 | Emergency (ER) | payer SELFPAY ==
--- OUTSIDE RECORDS SUMMARY | 2022-07-26 18:03 | XMS REPORT | Continuity of Care Document ---
:1990 Author Organization [facility] t Address [address] [place] [address] Care Team Providers Name Role Phone PCP, PATIENT DOES NOT HAVE A Primary Care Physician Unavaila ble Joni VANEGAS Attending Clinician Unavailable Joni Appiah Attending Clinician Ceferino BANGURA, Vasile Crowe Attending Clinician Joni VANEGAS Admitting Clinician Unavailable Payers Payer Name Policy Type Policy Number Effective Date Expiration Date S [facility] - [id number] 2021 00:00:00 OUT OF STATE Problems This patient has no known problems. Allergies, Adverse Reactions, Alerts Allergy Allergy Status Severity Reaction(s) Onset Inactive Treating Comm ents Source Name Type Date Date Clinician NO KNOWN Drug Active Univers ALLERGIE Class ity of [facility] Social History Social Habit Start Date Stop Date Quantity Comments Source History of Smokes tobacco [facility] tobacco use daily Exposure to 2022-04-13 2022-04-23 Not sure University of SARS-CoV-2 00:00:00 13:24:00 [place] [facility] Tobacco use and 2022-04-17 2022-04-17 Smokeless tobacco [facility] exposure 00:00:00 00:00:00 non-user Alcohol intake 2022-04-17 2022-04-17 Current drinker [facility] 00:00:00 00:00:00 of alcohol (finding) Sex Assigned At [address] [facility] 00:00:00 00:00:00 Smoking Status Start Date Stop Date Source Tobacco smoking consumption [facility] Medical unknown Branch Smokes tobacco daily 2022-04-17 00:00:00 [facility] Medications Ordered Filled Start Stop Current Ordering Indication Dosage Frequency Signature Comments Components Source Medication Medication Date Date Medication? Clinician (SIG) Name Name iopamidol No [id number] 66mL 66 mL, Univers (ISOVUE 04-23 Intravenou ity o f 370-500 mL) 21:45: 21:36 s, ONCE, 1 [place] injection 00 :00 dose, On Medica l 66 mL [facility] 04/23/22 at 1645, Routine NaCl 0.9% No 1000mL at 999 Uni vers (NS) bolus 04-23 mL/hr, ity of infusion 19:45: 20:15 1,000 mL, Willis as 1,000 mL 00 :00 IV Medical Infusion, Branch ONCE, 1 dose, On 04/23/22 at 1445, STAT ondansetron 2021- No 4mg 4 mg, Slow Univers (ZOFRAN 04-23 IV Push, ity of (PF)) 19:45: 19:09 ONCE, 1 [place] injection 4 00 :00 dose, On Medi ricki mg [facility] 04/23/22 at 1445, SAMMY morpHINE (2 No 4mg 4 mg, Slow Univers mg/mL) 04-23 IV Push, ity of injection 4 19:45: 19:09 [place] dose, On Medical Tue Branch 04/23/22 at 1445, STAT ondansetron 2021- No 4mg Q8H Take 1 Met hodi ODT 04-17 tablet (4 st (ZOFRAN-ODT 00:00: 04:59 mg total) Hospita ) 4 MG 00 :00 by mouth l disintegrat every 8 ing tablet (eight) hours as needed for nausea or vomiting for up to 30 days. No known 2014-08 No No known [facility] medications 0-15 medication it y of 22:24: s [address] Immunizations Ordered Filled Immunization Date Status Comments Sour e Immunization Name Name Td 2015-06-08 Completed [facility] 00:00:00 [facility] Vital Signs Vital Name Observation Time Observation Value Comments Source Systolic blood 2022-04-23 23:00:00 127 mm[Hg] Univer sity of [facility] Diastolic blood 2022-04-23 23:00:00 72 mm[Hg] Unive ity [facility] Heart rate 2022-04-23 23:00:00 86 /min [facility] Oxygen saturation in 2022-04-23 23:00:00 98 /min [facility] Arterial blood by [facility] Pulse oximetry [place] Body temperature 2022-04-23 22:00:00 36.83 Joelle [facility] Respiratory rate 2022-04-23 22:00:00 21 /min [facility] Body height 2022-04-23 18:27:00 172.7 cm [facility] Body weight 2022-04-23 18:27:00 74.844 kg [facility] BMI 2022-04-23 18:27:00 25.09 kg/m2 [facility] Systolic blood 2022-04-17 21:30:00 124 mm[Hg] [facility] Diastolic blood 2022-04-17 21:30:00 60 mm[Hg] [facility] pressure Heart rate 2022-04-17 21:30:00 88 /min [facility] Respiratory rate 2022-04-17 21:30:00 16 /min [facility] Oxygen saturation in 2022-04-17 21:30:00 98 /min [facility] Arterial blood by Pulse oximetry Body temperature 2022-04-17 20:35:00 36.67 Joelle [facility] Body height 2022-04-17 20:35:00 172.1 cm [facility] Body weight 2022-04-17 20:35:00 81.647 kg [facility] BMI 2022-04-17 20:35:00 27.57 kg/m2 [facility] Procedures Procedure Date / Time Performing Clinician Source Performed CT ABDOMEN PELVIS W 2022-04-23 21:38:44 Joni Vanegas [facility] CONTRAST Medical Branch US GALL BLADDER 2022-04-23 19:43:11 Joni Vanegas [facility] URINALYSIS 2022-04-23 19:08:00 Joni Vanegas [facility] LACTIC ACID WHOLE BLOOD 2022-04-23 18:54:00 Joni Vanegas [facility] BLOOD CULTURE SCREEN 2022-04-23 18:53:00 Joni Vanegas [facility] LIPASE 2022-04-23 18:53:00 Joni Vanegas [facility] MAGNESIUM 2022-04-23 18:53:00 Joni Vanegas [facility] COMP. METABOLIC PANEL 2022-04-23 18:53:00 Joni Vanegas [facility] ([id number]) [facility] CBC WITH DIFF 2022-04-23 18:53:00 Joni Vanegas [facility] NOTICE OF PRIVACY 2022-04-23 18:20:42 Doctor Unassigned, No Univ [facility] PRACTICES Name [facility] CONSENT/REFUSAL FOR 2022-04-23 18:06:38 Doctor Unassigned, No [facility] Name [facility] ED REFERRAL TO VAN 2022-04-17 21:54:13 [facility] [place] ORGANIZATION (PCP) CT ABDOMEN PELVIS WO 2022-04-17 21:40:45 Luis Carlos Renteria [facility] CONTRAST [place] XR CHEST 1 VW PORTABLE 2022-04-17 21:28:33 Luis Carlos Renteria [facility] [place] URINALYSIS 2022-04-17 21:05:[address] [facility] [place] CBC WITH PLATELET AND 2022-04-17 20:54:00 Luis Carlos Renteria [facility] DIFFERENTIAL [place] COMPREHENSIVE METABOLIC 2022-04-17 20:54:00 Luis Carlos Renteria [facility] PANEL [place] ESTIMATED GFR 2022-04-17 20:54:00 [facility] [place] Plan of Care Planned Activity Planned Date Details Comments Source Future Scheduled 2022-06-25 HEPATITIS B VACCINES Met [facility] Test 14:42:54 (1 of 3 - 3-dose series) [code = HEPATITIS B VACCINES (1 of 3 - 3-dose series)] Future Scheduled 2022-06-25 COVID-19 VACCINE (#1) [facility] Test 14:42:54 [code = COVID-19 VACCINE (#1)] Future Scheduled 2022-06-25 Pneumococcal Vaccine: [facility] Test 14:42:54 Pediatrics (0 to 5 Years) and At-Risk Patients (6 to 64 Years) (1 - PCV) [code = Pneumococcal Vaccine: Pediatrics (0 to 5 Years) and At-Risk Patients (6 to 64 Years) (1 - PCV)] Future Scheduled 2022-06-25 Hepatitis C screening [facility] Test 14:42:54 (procedure) [code = 302893675] Future Scheduled 2022-06-25 INFLUENZA VACCINE Method [facility] Test 14:42:54 [code = INFLUENZA VACCINE] Encounters Start End Encounter Admission Attending Care Care Encounter Source Date/Time Date/Time Type Type Clinicians Facility Department ID 2022-04-23 2022-04-23 Emergency X ROMINA, K [facility] ERT [id number] Univers 13:29:00 18:12:00 ity of [facility] 2022-04-23 2022-04-23 Emergency Romina, K [facility] [id number] Univers 13:29:00 18:12:00 Neli [place] [id number] i ty [facility] [id number] [facility] [id number] [place] [address] Branch 2022-04-17 2022-04-17 Emergency [place], [id number] Methodi 15:31:00 17:09:00 Vasile Crowe [id number] 3.430.2.7 Hospit a .[id number] l .8 2022-04-17 2022-04-17 Emergency [place], [facility] [id number] [place] 00:00:00 00:00:[address] 2022-04-17 2022-04-17 Travel 1.2.840.1 [id number] Methodi 00:00:00 00:00:[id number] 3.430.2.7 0.2.7.3.698 Ho spita .[id number] 084.8 l .8 Results This patient has no known results.
[2022-07-26 19:57] LABS: Absolute Lymphocytes (CBC) 2.9 K/uL (0.7-4.9); Hematocrit 44.2 % (39.6-49.0); Lymphocytes % 21.2 % (15.3-44.8); MCV 89.1 fL (80-100); RBC Red Blood Cell Count 4.96 M/uL (4.33-5.43)
[2022-07-26 19:58] LABS: Urine Blood Negative (Negative); Urine Glucose Negative (Negative); Urine Protein Negative (Negative); Urine Specific Gravity 1.025 (1.005-1.030); Urine pH 6.5 (5.0-7.0)
[2022-07-26 20:19] LABS: Bilirubin Total 0.2 mg/dL (0.2-1.0); Potassium 4.2 mmol/L (3.5-5.1); Protein, Total 8.1 g/dL (6.4-8.2)
[2022-07-26 20:21] LABS: Urine Crystals Unidentified Few /HPF (None Seen); Urine Mucus Slight /HPF (None Seen); Urine RBC <5 /HPF (None Seen)
--- NOTE | 2022-07-26 20:27 | RAD REPORT ---
EXAM DESCRIPTION: US - Abdomen Exam Limited - 07/26/2022 8:16 pm CLINICAL HISTORY: ABD PAIN COMPARISON: Abdomen Exam Limited dated 11/04/2020 FINDINGS: The gallbladder demonstrates gallbladder contraction. No gross stone visualize. Gallbladde r wall is thickened but most likely related to the underlying contraction. The common bile duct is no rmal measuring 4 mm. The liver demonstrates no findings of intrahepatic biliary dilatation. IMPRESSION: Moderately contracted gallbladder noted without gross stone visualized.
--- NOTE | 2022-07-26 20:47 | RAD REPORT ---
EXAM DESCRIPTION: CTAbdomen Pelvis W Contrast - 07/26/2022 8:39 pm CLINICAL HISTORY: Abdominal pain. RUQ abdominal pain COMPARISON: Abdomen Pelvis W Contrast dated 04/15/2022; Abdomen Pelvis W Contrast dated 11/04/2020 TECHNIQUE: Biphasic CT imaging of the abdomen and pelvis was performed with 100 ml non-ionic IV cont rast. All CT scans are performed using dose optimization technique as appropriate and may include automated exposure control or mA/KV adjustment according to patient size. FINDINGS: The lung bases are clear. The liver, spleen, pancreas, adrenal glands and kidneys are within normal limits. No bowel obstruction, free air, free fluid or abscess. Significant retained stool throughout the colo n. Presumed previous appendectomy. No evidence of significant lymphadenopathy. No suspicious bony findings. IMPRESSION: No acute intra-abdominal or pelvic finding. Significant fecal retention.
--- NOTE | 2022-07-26 21:04 | EDPHYS ---
Physician Documentation [facility] Name: Alpesh Lancaster Age: 32 yrs Sex: Male : 1990 Arrival Date: 07/26/2022 Time: 17:57 Bed 7 Private MD: ED Physician Antoine Brar HPI: 07/26 20:24 This 32 yrs old Male presents to ER via Ambulatory with complaints of Abdominal Pain, ms3 Flank Pain, Back Pain. 20:24 The patient presents with abdominal pain in the right upper quadrant. Onset: The ms3 symptoms/episode began/occurred 2 week(s) ago. The symptoms do not radiate. Associated signs and symptoms: Pertinent positives: chills, Pertinent negatives: fever. The symptoms are described as achy. Modifying factors: The symptoms are alleviated by nothing, the symptoms are aggravated by nothing. Severity of pain: At its worst the pain was severe in the emergency department the pain is unchanged. 20:24 Patient states he was recently hospitalized in [place] for a distended gallbladder ms3 that was causing an intestinal and urine infection.. Historical: - Allergies: 19:13 No Known Allergies; kb3 - Home Meds: 19:13 None [Active]; kb3 - PMHx: 19:13 gallbladder problems; kb3 - PSHx: 19:13 Appendectomy; kb3 - Immunization history:: Adult Immunizations up to date, Client reports having NOT received the Covid vaccine. Last tetanus immunization: up to date. - Social history:: Smoking status: Patient reports the use of cigarette tobacco products, smokes one-half pack cigarettes per day. ROS: 20:24 Neck: Negative for injury, pain, and swelling, Cardiovascular: Negative for chest pain, ms3 and palpitations. Respiratory: Negative for shortness of breath, cough, wheezing, and pleuritic chest pain, Abdomen/GI: Negative for abdominal pain, nausea, vomiting, diarrhea, and constipation, MS/Extremity: Negative for injury and deformity, Skin: Negative for injury, rash, and discoloration. 20:24 Constitutional: Positive for chills, Negative for fever. 20:24 All other systems are negative. Exam: 20:24 Constitutional: This is a well developed, well nourished patient who is awake, alert, ms3 and in no acute distress. Head/Face: Normocephalic, atraumatic. Neck: Trachea midline, no cervical lymphadenopathy. Supple, full range of motion without nuchal rigidity, or vertebral point tenderness. No Meningismus. Chest/axilla: Normal chest wall appearance and motion. Nontender with no deformity. Cardiovascular: Regular rate and rhythm with a normal S1 and S2. No gallops, murmurs, or rubs. Normal PMI, no JVD. No pulse deficits. Respiratory: Lungs have equal breath sounds bilaterally, clear to auscultation and percussion. No rales, rhonchi or wheezes noted. No increased work of breathing, no retractions or nasal flaring. 20:24 Skin: Warm, dry with normal turgor. Normal color with no rashes, no lesions, and no evidence of cellulitis. MS/ Extremity: Pulses equal, no cyanosis. Neurovascular intact. Full, normal range of motion. 20:24 Abdomen/GI: Inspection: abdomen appears normal, Bowel sounds: normal, Palpation: severe abdominal tenderness, in the right upper quadrant. Vital Signs: 19:09 BP 130 / 81; Pulse 88; Resp 20; Temp 98.3; Pulse Ox 100% ; Weight 78.47 kg; Height 5 kb3 ft. 8 in. (172.72 cm); Pain 10/10; 21:00 BP 130 / 90; Pulse 92; Resp 18; Pulse Ox 98% on R/A; kl 21:38 BP 126 / 74; Pulse 84; Pulse Ox 99% on R/A; kl 19:09 Body Mass Index 26.30 (78.47 kg, 172.72 cm) kb3 MDM: 19:34 Patient medically screened. ms3 20:24 Differential diagnosis: cholecystitis, Cholelithiasis, gastritis, Hepatitis, urinary ms3 tract infection. 21:03 Data reviewed: vital signs, nurses notes, lab test result(s), and as a result, I will ms3 discharge patient. Data reviewed: radiologic studies. Counseling: I had a detailed discussion with the patient and/or guardian regarding: the historical points, exam findings, and any diagnostic results supporting the discharge/admit diagnosis, lab results, radiology results, the need for outpatient follow up, to return to the emergency department if symptoms worsen or persist or if there are any questions or concerns that arise at home. ED course: Discussed labs and imaging with patient. Patient to follow-up with primary care physician was discussed. All questions were answered. Return precautions discussed include worsening symptoms, or any other concerns. On reevaluation patient is alert and oriented x4, in no apparent distress, nontoxic appearing, ambulatory emergency department.. 07/26 19:35 Order name: CBC with Diff; Complete Time: 20:24 ms3 07/26 19:35 Order name: CMP; Complete Time: 20:24 ms3 07/26 19:35 Order name: Lipase; Complete Time: 20:24 ms3 07/26 19:35 Order name: Urine Microscopic Only; Complete Time: 20:24 ms3 07/26 19:58 Order name: Urine Dipstick-Ancillary; Complete Time: 20:24 EDMS 07/26 20:24 Order name: Urine Culture EDMS 07/26 19:35 Order name: IV Saline Lock; Complete Time: 19:50 ms3 07/26 19:35 Order name: Labs collected and sent; Complete Time: 19:50 ms3 07/26 19:36 Order name: CT Abd/Pelvis - IV Contrast Only; Complete Time: 20:56 ms3 07/26 19:36 Order name: US Abdomen Limited; Complete Time: 20:56 ms3 07/26 19:35 Order name: Urine Dipstick-Ancillary (obtain specimen); Complete Time: 19:58 ms3 Administered Medications: 21:11 Drug: Pepcid (famotidine) 20 mg Route: IVP; Site: right antecubital; kl 21:39 Follow up: Response: No adverse reaction; Marked relief of symptoms kl 21:11 Not Given (Physician Discretion): Zofran (Ondansetron) 4 mg IVP once; over 2 minutes kl 21:16 Not Given (Physician Discretion): NS 0.9% 1000 ml IV at 1 bolus Per protocol; 1000 mL kl bolus 21:16 Not Given (Physician Discretion): morphine 4 mg IVP once over 4 mins kl Disposition Summary: 07/26/22 21:03 Discharge Ordered Location: Home ms3 Condition: Stable ms3 Diagnosis - Upper abdominal pain, unspecified ms3 Followup: ms3 - With: Andre Adam MD - When: 2 - 3 days - Reason: Recheck today's complaints Discharge Instructions: - Discharge Summary Sheet ms3 - Abdominal Pain, Adult ms3 Forms: - Medication Reconciliation Form ms3 - Thank You Letter ms3 - Antibiotic Education ms3 - Prescription Opioid Use ms3 Signatures: Dispatcher [employer] Shannon Goodson, RN Antoine Esteban DO DO ms3 Kalpana Jorgensen, RN RN kb3
--- NOTE | 2022-07-26 21:04 | ER ---
Nurse's Notes [facility] Name: Alpesh Lancaster Age: 32 yrs Sex: Male : 1990 Arrival Date: 07/26/2022 Time: 17:57 Bed 7 Private MD: Diagnosis: Upper abdominal pain, unspecified Presentation: 07/26 19:09 Chief complaint: Patient states: Pt reports right upper quadrant pain that radiates to kb3 right back. States he was admitted in [facility] 07/21-07/24 but was told "the infection is spreading too fast there is nothing we can do for you and discharged him.". Coronavirus screen: Vaccine status: Patient reports being unvaccinated. Client denies travel out of the [place] in the last 14 days. Ebola Screen: Patient negative for fever greater than or equal to 101.5 degrees Fahrenheit, and additional compatible Ebola Virus Disease symptoms Patient denies exposure to infectious person. Patient denies travel to an Ebola-affected area in the 21 days before illness onset. Initial Sepsis Screen: Does the patient meet any 2 criteria? No. Patient's initial sepsis screen is negative. Does the patient have a suspected source of infection? No. Patient's initial sepsis screen is negative. Risk Assessment: Do you want to hurt yourself or someone else? Patient reports no desire to harm self or others. Onset of symptoms was July 06, 2022. 19:09 Method Of Arrival: Ambulatory 3 19:09 Acuity: LUCY 3 kb3 Triage Assessment: 19:13 General: Appears in no apparent distress. Behavior is calm, cooperative. Pain: kb3 Complains of pain in right upper quadrant Pain radiates to right mid back Pain currently is 10 out of 10 on a pain scale. Quality of pain is described as sharp. GI: Reports upper abdominal pain, diarrhea, nausea, vomiting. Historical: - Allergies: 19:13 No Known Allergies; kb3 - Home Meds: 19:13 None [Active]; kb3 - PMHx: 19:13 gallbladder problems; kb3 - PSHx: 19:13 Appendectomy; kb3 - Immunization history:: Adult Immunizations up to date, Client reports having NOT received the Covid vaccine. Last tetanus immunization: up to date. - Social history:: Smoking status: Patient reports the use of cigarette tobacco products, smokes one-half pack cigarettes per day. Screenin:38 Abuse screen: Denies threats or abuse. Nutritional screening: No deficits noted. kl Tuberculosis screening: No symptoms or risk factors identified. Fall Risk None identified. Assessment: 21:00 General: Appears uncomfortable, Behavior is calm, cooperative. Pain: Complains of pain kl in abdomen and right upper quadrant Pain currently is 10 out of 10 on a pain scale. Neuro: No deficits noted. Cardiovascular: No deficits noted. Respiratory: No deficits noted. GI: Bowel sounds present X 4 quads. Abdomen is tender to palpation Reports diarrhea. : No deficits noted. No signs and/or symptoms were reported regarding the genitourinary system. EENT: No deficits noted. No signs and/or symptoms were reported regarding the EENT system. Vital Signs: 19:09 BP 130 / 81; Pulse 88; Resp 20; Temp 98.3; Pulse Ox 100% ; Weight 78.47 kg; Height 5 kb3 ft. 8 in. (172.72 cm); Pain 10/10; 21:00 BP 130 / 90; Pulse 92; Resp 18; Pulse Ox 98% on R/A; kl 21:38 BP 126 / 74; Pulse 84; Pulse Ox 99% on R/A; kl 19:09 Body Mass Index 26.30 (78.47 kg, 172.72 cm) kb3 ED Course: 17:57 Patient arrived in ED. rg4 19:13 Triage completed. kb3 19:13 Arm band placed on right wrist. kb3 19:16 Antoine Brar DO is Attending Physician. ms3 19:49 Inserted saline lock: 20 gauge in right antecubital area, using aseptic technique. zm Blood collected. 19:50 CMP Sent. zm 19:50 CBC with Diff Sent. zm 19:50 Lipase Sent. zm 19:58 Urine Microscopic Only Sent. zm 20:18 US Abdomen Limited In Process Unspecified. EDMS 20:41 CT Abd/Pelvis - IV Contrast Only In Process Unspecified. EDMS 21:02 Andre Adam MD is Referral Physician. ms3 21:38 No provider procedures requiring assistance completed. IV discontinued, intact, kl bleeding controlled, No redness/swelling at site. 21:39 Patient has correct armband on for positive identification. kl Administered Medications: 21:11 Drug: Pepcid (famotidine) 20 mg Route: IVP; Site: right antecubital; kl 21:39 Follow up: Response: No adverse reaction; Marked relief of symptoms kl 21:11 Not Given (Physician Discretion): Zofran (Ondansetron) 4 mg IVP once; over 2 minutes kl 21:16 Not Given (Physician Discretion): NS 0.9% 1000 ml IV at 1 bolus Per protocol; 1000 mL kl bolus 21:16 Not Given (Physician Discretion): morphine 4 mg IVP once over 4 mins kl Medication: 21:39 VIS not applicable for this client. kl Outcome: 21:03 Discharge ordered by . ms3 21:39 Discharged to home ambulatory, with family. kl 21:39 Condition: stable 21:39 Discharge instructions given to patient, family, Instructed on discharge instructions, follow up and referral plans. Demonstrated understanding of instructions, follow-up care. 21:39 Patient left the ED. Signatures: Dispatcher [employer] EDMS Shannon Nguyen RN RN Ruth Ann Alexander rg4 Antoine Brar DO DO ms3 Fannie Sam Kelly, RN RN kb3
[2022-07-26] MEDS ORDERED: FAMOTIDINE 20 MG/2 ML VIAL IV ONE (21:08)
[2022-07-26 22:22] VITALS: TEMP 98.3
[2022-07-26 22:24] VITALS: BP 126/74; O2SAT 99
== END 2022-07-26 21:39 | disposition home or self-care (01) ==
LOC: ER 17:55
DX: R10.11 Right upper quadrant pain (principal); F17.210 Nicotine dependence, cigarettes, uncomplicated
CPT/HCPCS: 36415; 74177; 76705; 80053; 81003; 81015; 83690; 85025; 87086; 87088; 96374; 99284; Q9967

== ENCOUNTER 2022-08-05 12:41 | Emergency (ER) | payer SELFPAY ==
--- OUTSIDE RECORDS SUMMARY | 2022-08-05 12:44 | XMS REPORT | Continuity of Care Document ---
:1990 Author Organization [facility] t Address [address] [place] [address] Care Team Providers Name Role Phone Asked, No Pcp Primary Care Physician Unavailable Joni VANEGAS Attending Clinician Unavailable Joni Appiah Attending Clinician Ceferino BANGURA, Jarred Crowe Attending Clinician Joni VANEGAS Admitting Clinician Unavailable Payers Payer Name Policy Type Policy Number Effective Date Expiration Date [id number] 2021 00:00:00 OUT OF STATE Problems This patient has no known problems. Allergies, Adverse Reactions, Alerts Allergy Allergy Status Severity Reaction(s) Onset Inactive Treating Comm ents Source Name Type Date Date Clinician NO KNOWN Drug Active Univers ALLERGIE Class ity of [facility] Social History Social Habit Start Date Stop Date Quantity Comments Source History of Cigarette Smoker [facility] tobacco use Exposure to 2022-04-13 2022-04-23 Not sure [facility]-CoV-2 00:00:00 13:24:00 [facility] ([facility] [place] Alcohol intake 2022-04-17 2022-04-17 Current drinker [facility] 00:00:00 00:00:00 of alcohol (finding) Tobacco use and 2022-04-17 2022-04-[address] [facility] exposure 00:00:00 00:00:00 non-user Sex Assigned At [birth year] [facility] 00:00:00 00:00:00 Smoking Status Start Date Stop Date Source Tobacco smoking consumption Univ [facility] Medical unknown Branch Smokes tobacco daily 2022-04-17 00:00:00 [facility] [place] [facility] Medications Ordered Filled Start Stop Current Ordering Indication Dosage Frequency Signature Comments Components Source Medication Medication Date Date Medication? Clinician (SIG) Name Name iopamidol No [id number] 66mL 66 mL, Univers (ISOVUE 04-23 Intravenou ity o f 370-500 mL) 21:45: 21:36 s, ONCE, 1 [place] injection 00 :00 dose, On Medica l 66 mL Tue Branch 04/23/22 at 1645, Routine NaCl 0.9% No 1000mL at 999 Uni vers (NS) bolus 04-23 mL/hr, ity of infusion 19:45: 20:15 1,000 mL, Willis as 1,000 mL 00 :00 IV Medical Infusion, Branch ONCE, 1 dose, On e 04/23/22 at 1445, STAT ondansetron 2021- No 4mg 4 mg, Slow Univers (ZOFRAN 04-23 IV Push, ity of (PF)) 19:45: 19:09 ONCE, 1 [place] injection 4 00 :00 dose, On Medi ricki mg Tue Branch 04/23/22 at 1445, SAMMY morpHINE (2 2021- No 4mg 4 mg, Slow Univers mg/mL) [...] or vomiting for up to 30 days. ondansetron 4mg Q8H Take 1 Met hodi ODT 04-17 tablet (4 st (ZOFRAN-ODT 00:00: 04:59 mg total) Hospita ) 4 MG 00 :00 by mouth l disintegrat every 8 ing tablet (eight) hours as needed for nausea or vomiting for up to 30 days. No known 2014-08 No No known [facility] rs medications 0-15 medication it y of 22:24: s [address] Immunizations Ordered Filled Immunization Date Status Comments [facility] e Immunization Name Name Td 2015-06-08 Completed [facility] 00:00:00 [facility] Vital Signs Vital Name Observation Time Observation Value Comments Source Systolic blood 2022-04-23 23:00:00 127 mm[Hg] Univer sity [facility] Diastolic blood 2022-04-23 23:00:00 72 mm[Hg] Unive rsity [facility] Heart rate 2022-04-23 23:00:00 86 /min [facility] Oxygen saturation in 2022-04-23 23:00:00 98 /min [facility] Arterial blood by [facility] Pulse oximetry [place] Body temperature 2022-04-23 22:00:00 36.83 Joelle [facility] Respiratory rate 2022-04-23 22:00:00 21 /min [facility] Body height 2022-04-23 18:27:00 172.7 cm [facility] Body weight 2022-04-23 18:27:00 74.844 kg [facility] BMI 2022-04-23 18:27:00 25.09 kg/m2 [facility] Systolic blood 2022-04-17 21:30:00 124 mm[Hg] [facility] pressure Diastolic blood 2022-04-17 21:30:00 60 mm[Hg] [facility] pressure Heart rate 2022-04-17 21:30:00 88 /min [facility] Respiratory rate 2022-04-17 21:30:00 16 /min [facility] Oxygen saturation in 2022-04-17 21:30:00 98 /min [facility] Arterial blood by Pulse oximetry Body temperature 2022-04-17 20:35:00 36.67 Joelle [facility] Body height 2022-04-17 20:35:00 172.1 cm [facility] Body weight 2022-04-17 20:35:00 81.647 kg [facility] BMI 2022-04-17 20:35:00 27.57 kg/m2 [facility] Procedures Procedure Date / Time Performing Clinician Source Performed CT ABDOMEN PELVIS W 2022-04-23 21:38:44 Joni Vanegas [facility] Branch US GALL BLADDER 2022-04-23 19:43:11 Joni Vanegas [facility] URINALYSIS 2022-04-23 19:08:00 Rudy [facility] LACTIC ACID WHOLE BLOOD 2022-04-23 18:54:00 Joni Vanegas Neli [facility] BLOOD CULTURE SCREEN 2022-04-23 18:53:00 Joni Vanegas [facility] ity [facility] LIPASE 2022-04-23 18:53:00 Joni Vanegas [facility] MAGNESIUM 2022-04-23 18:53:00 Rudy [facility] COMP. METABOLIC PANEL 2022-04-23 18:53:00 Joni Vanegas [facility] ([id number]) [facility] CBC WITH DIFF 2022-04-23 18:53:00 Rudy [facility] NOTICE OF PRIVACY 2022-04-23 18:20:42 Doctor Unassigned, No [facility] CONSENT/REFUSAL FOR 2022-04-23 18:06:38 Doctor Unassigned, No [facility] Name [facility] ED REFERRAL TO [facility] 2022-04-17 21:54:13 Luis Carlos Renteria [facility] MORMON PHYSICIAN [place] ORGANIZATION (PCP) CT ABDOMEN PELVIS WO 2022-04-17 21:40:45 Marinas, Luis Carlos [facility] CONTRAST [place] XR CHEST 1 VW PORTABLE 2022-04-17 21:28:33 Luis Carlos Renteria [facility] [place] URINALYSIS 2022-04-17 21:05:00 [facility] [place] CBC WITH PLATELET AND 2022-04-17 20:54:00 [facility] DIFFERENTIAL [place] COMPREHENSIVE METABOLIC 2022-04-17 20:54:00 Luis Carlos Renteria [facility] PANEL [place] ESTIMATED GFR 2022-04-17 20:54:00 [facility] Plan of Care Planned Activity Planned Date Details Comments Source Future Scheduled 2022-06-25 HEPATITIS B VACCINES Met [facility] Test 14:42:54 (1 of 3 - 3-dose series) [code = HEPATITIS B VACCINES (1 of 3 - 3-dose series)] Future Scheduled 2022-06-25 COVID-19 VACCINE (#1) [facility] Test 14:42:54 [code = COVID-19 VACCINE (#1)] Future Scheduled 2022-06-25 Pneumococcal Vaccine: [facility] Test 14:42:54 Pediatrics (0 to 5 Years) and At-Risk Patients (6 to 64 Years) (1 - PCV) [code = Pneumococcal Vaccine: Pediatrics (0 to 5 Years) and At-Risk Patients (6 to 64 Years) (1 - PCV)] Future Scheduled 2022-06-[address] [facility] Test 14:42:54 (procedure) [code = 883106929] Future Scheduled 2022-06-25 INFLUENZA VACCINE Method [facility] Test 14:42:54 [code = INFLUENZA VACCINE] Future Scheduled 2022-06-25 HEPATITIS B VACCINES [facility] Test 14:42:54 (1 of 3 - 3-dose series) [code = HEPATITIS B VACCINES (1 of 3 - 3-dose series)] Future Scheduled 2022-06-25 COVID-19 VACCINE (#1) [facility] Test 14:42:54 [code = COVID-19 VACCINE (#1)] Future Scheduled 2022-06-25 Pneumococcal Vaccine: [facility] Test 14:42:54 Pediatrics (0 to 5 Years) and At-Risk Patients (6 to 64 Years) (1 - PCV) [code = Pneumococcal Vaccine: Pediatrics (0 to 5 Years) and At-Risk Patients (6 to 64 Years) (1 - PCV)] Future Scheduled 2022-06-[address] [facility] Test 14:42:54 (procedure) [code = [id number]] Future Scheduled 2022-06-25 INFLUENZA VACCINE Method [facility] Test 14:42:54 [code = INFLUENZA VACCINE] Encounters Start End Encounter Admission Attending Care Care Encounter Source Date/Time Date/Time Type Type Clinicians Facility Department ID 2022-04-23 2022-04-23 Emergency X Joni VANEGAS [facility] ERT [id number] Univers 13:29:00 18:12:00 ity of [facility] 2022-04-23 2022-04-23 Emergency Joni Vanegas [facility] [id number] Univers 13:29:00 18:12:00 Neli XAVIER 350.1.13.10 i [facility] 4.2.7.2.686 [facility] [id number] [address] 2022-04-17 2022-04-17 Emergency [place], 1.2.840.1 [id number] Methodi 15:31:00 17:09:[address] 3.430.2.7 Hospit a .3.613695 l .8 2022-04-17 2022-04-17 Emergency [place], 1.2.840.1 [id number] [facility] 15:31:00 17:09:[address] 3.430.2.7 Hospit a .3.098857 l .8 2022-04-17 2022-04-17 Travel 1.2.840.1 [id number] Methodi 00:00:00 00:00:[address] 3.430.2.7 0.2.7.3.698 Ho [facility]ita .3.839854 084.8 l .8 2022-04-17 2022-04-17 Travel 1.2.840.1 1.2.919.902 [id number] Methodi 00:00:00 00:00:[address] 3.430.2.7 0.2.7.3.698 [facility] .3.667483 084.8 l .8 Results This patient has no known results.
[2022-08-05] MEDS ORDERED: MORPHINE 4 MG/ML SYR ONE (13:42)
[2022-08-05] MEDS ORDERED: ONDANSETRON 4 MG/2 ML VIAL ONE (13:42)
[2022-08-05 14:00] LABS: Absolute Lymphocytes (CBC) 2.1 K/uL (0.7-4.9); Hematocrit 44.3 % (39.6-49.0); Lymphocytes % 12.1 % (15.3-44.8); MCV 88.2 fL (80-100); MPV 8.3 fL (7.6-11.3); RBC Red Blood Cell Count 5.03 M/uL (4.33-5.43)
[2022-08-05 14:19] LABS: Bilirubin Total 0.2 mg/dL (0.2-1.0); Protein, Total 8.1 g/dL (6.4-8.2)
--- NOTE | 2022-08-05 14:55 | RAD REPORT ---
EXAM DESCRIPTION: CTAngio Aorta For Dissection - 08/05/2022 2:38 pm CLINICAL HISTORY: right sided chest pain, abdominal pain COMPARISON: No comparisons TECHNIQUE: CTA of the chest, abdomen, and pelvis was performed. MIP reconstructions were performed. All CT scans are performed using dose optimization technique as appropriate and may include automated exposure control or mA/KV adjustment according to patient size. FINDINGS: Thorax: Chest Wall: No abnormal mass gynecomastia Lungs: No acute abnormality. Pleura: No effusions or pneumothorax. Keyla/Mediastinum: No lymphadenopathy. Aorta/Pulmonary Arteries: Unremarkable Heart: Normal size. Abdomen/Pelvis: Liver: No acute abnormality or suspicious lesions. Biliary: No biliary ductal dilatation. Stomach: No significant focal abnormality. Duodenum: No significant focal abnormality. Pancreas: No significant abnormality. Spleen: No significant abnormality. Adrenal: No suspicious lesions. Kidney/ureter: No hydronephrosis. No renal calculi. Retroperitoneum: No retroperitoneal adenopathy. Vascular: No aneurysm. Bowel: No significant focal abnormality. Appendectomy Peritoneum: No ascites or free air. Bladder: Grossly unremarkable. Reproductive: No adnexal masses. Bones: No acute fracture. Other: n/a IMPRESSION: No acute findings within the chest, abdomen, or pelvis. Specifically, no evidence of aor tic aneurysm or dissection.
--- NOTE | 2022-08-05 15:11 | EDPHYS ---
Physician Documentation [facility] Name: Alpesh Lancaster Age: 32 yrs Sex: Male : 1990 Arrival Date: 08/05/2022 Time: 12:43 Bed 17 Private MD: ED Physician Antoine Brar HPI: 08/05 13:25 This 32 yrs old Male presents to ER via Ambulatory with complaints of Flank Pain, jmm Vomiting/Diarrhea. 13:25 Is a 32-year-old male with history of chronic flank pain beginning approximately 2 jmm years ago he states. Patient states having difficulty after eating. Patient will either have multiple episodes of vomiting or diarrhea. Patient states he has been seen multiple times for this and hospitalized multiple times for this as well. Patient was last evaluated in the ER on the second of this month advised follow-up with GI/surgery. Patient followed up with Dr. Sam who saw the patient in clinic. Recommended HIDA scan. Patient states that the pain has intensified since this past and cannot stand the pain much more.. Historical: - Allergies: 13:30 No Known Allergies; iw - Home Meds: 13:30 None [Active]; iw - PMHx: 13:30 gallbladder problems; iw - PSHx: 13:30 Appendectomy; iw - Immunization history:: Client reports receiving the 2nd dose of the Covid vaccine. - Social history:: Smoking status: Patient reports the use of cigarette tobacco products, smokes one-half pack cigarettes per day. ROS: 13:25 Constitutional: Negative for fever, chills, and weight loss, Cardiovascular: Negative jmm for chest pain, palpitations, and edema, Respiratory: Negative for shortness of breath, cough, wheezing, and pleuritic chest pain. 13:25 Abdomen/GI: Positive for abdominal pain, nausea and vomiting, diarrhea. 13:25 Back: Positive for flank pain, on the right. 13:25 All other systems are negative. Exam: 13:25 Constitutional: This is a well developed, well nourished patient who is awake, alert, jmm and in no acute distress. Head/Face: atraumatic. Eyes: EOMI, no conjunctival erythema appreciated ENT: Moist Mucus Membranes Neck: Trachea midline, Supple Chest/axilla: Normal chest wall appearance and motion. Cardiovascular: Regular rate and rhythm. No edema appreciated Respiratory: Normal respirations, no respiratory distress appreciated 13:25 Abdomen/GI: Inspection: abdomen appears normal, Bowel sounds: normal, Palpation: soft, moderate abdominal tenderness, in the right upper quadrant. 13:25 Back: CVA tenderness, that is mild, is noted on the right. 13:25 Musculoskeletal/extremity: ROM: intact in all extremities. 13:25 Skin: Appearance: Color: normal in color. 13:25 Neuro: Orientation: is normal, Mentation: is normal, Memory: is normal. 13:25 Psych: Behavior/mood is pleasant, cooperative. Vital Signs: 13:28 BP 143 / 89; Pulse 93; Resp 16; Temp 98.1; Pulse Ox 100% on R/A; Weight 81.65 kg; iw Height 5 ft. 8 in. (172.72 cm); Pain 10/10; 13:58 BP 132 / 83; Pulse 82; Resp 18; Temp 98.1(O); Pulse Ox 98% on R/A; Pain 10/10; kc6 15:15 BP 119 / 74; Pulse 78; Resp 18 S; Pulse Ox 98% on R/A; Pain 6/10; kc6 13:28 Body Mass Index 27.37 (81.65 kg, 172.72 cm) iw MDM: 13:25 Patient medically screened. [facility] 15:10 Data reviewed: vital signs, nurses notes. Counseling: I had a detailed discussion with [facility] the patient and/or guardian regarding: the historical points, exam findings, and any diagnostic results supporting the discharge/admit diagnosis, lab results, radiology results, the need for outpatient follow up, to return to the emergency department if symptoms worsen or persist or if there are any questions or concerns that arise at home. 19:00 ED course: Labs and imaging studies were discussed with Dr. Sam who recommended [facility] outpatient follow-up. Patient otherwise given strict return precautions. Patient understood agrees plan of care.. 08/05 13:31 Order name: CBC with Diff; Complete Time: 14:09 [facility] 08/05 13:31 Order name: CMP; Complete Time: 14:19 [facility] 08/05 13:31 Order name: Lipase; Complete Time: 14:19 [facility] 08/05 13:31 Order name: CT Aorta for Dissection; Complete Time: 15:00 [facility] 08/05 13:31 Order name: IV Saline Lock; Complete Time: 13:55 [facility] 08/05 13:31 Order name: Labs collected and sent; Complete Time: 13:55 [facility] Administered Medications: 13:55 Drug: morphine 4 mg Route: IVP; Infused Over: 4 mins; Site: right forearm; kc6 15:18 Follow up: Response: No adverse reaction; Pain is decreased; RASS: Alert and Calm (0) kc6 13:55 Drug: Zofran (Ondansetron) 4 mg Route: IVP; Site: right forearm; kc6 15:18 Follow up: Response: No adverse reaction; Nausea is decreased kc6 Disposition: 18:25 Co-signature as Attending Physician, Antoine Brar DO I was immediately available onsite ms3 in the emergency department for consultation in the care of the patient. Disposition Summary: 08/05/22 15:11 Discharge Ordered Location: Home [facility] Condition: Stable [facility] Diagnosis - Chronic Abdominal Pain [facility] Followup: [facility] - With: Mark Sam MD - When: 2 - 3 days - Reason: Recheck today's complaints, Continuance of care, Re-evaluation by your physician Discharge Instructions: - Discharge Summary Sheet [facility] - Abdominal Pain, Adult [facility] Forms: - Medication Reconciliation Form [facility] - Thank You Letter [facility] - Antibiotic Education [facility] - Prescription Opioid Use [facility] Prescriptions: - ondansetron 4 mg odt - take 1 tablet by SUBLINGUAL route every 4-6 hours As needed; 30 tablet; [facility] Refills: 0, Product Selection Permitted - Pepcid 20 mg Oral Tablet - take 1 tablet by ORAL route every 12 hours for 10 days; 20 tablet; Refills: 0, [facility] Product Selection Permitted - dicyclomine 20 mg Oral Tablet - take 1 tablet by ORAL route 4 times per day; 30 tablet; Refills: 0, Product [facility] Selection Permitted Signatures: Dispatcher [employer] EDWillard Gibbs PA PA [facility] Liza Jim RN RN iw Sims, Marcus, DO DO ms3 Kalie Penny RN RN kc6
--- NOTE | 2022-08-05 15:11 | ER ---
Nurse's Notes [facility] Name: Alpesh Lancaster Age: 32 yrs Sex: Male : 1990 Arrival Date: 08/05/2022 Time: 12:43 Bed 17 Private MD: Diagnosis: Chronic Abdominal Pain Presentation: 08/05 13:28 Chief complaint: Patient states: right flank pain , was told he needs a HIDA scan is iw scheduled for one on Friday per Dr. Sam, pain has increased, his office told him to come to ER. Coronavirus screen: At this time, the client does not indicate any symptoms associated with coronavirus-19. Ebola Screen: Patient negative for fever greater than or equal to 101.5 degrees Fahrenheit, and additional compatible Ebola Virus Disease symptoms Patient denies exposure to infectious person. Patient denies travel to an Ebola-affected area in the 21 days before illness onset. No symptoms or risks identified at this time. Initial Sepsis Screen: Does the patient meet any 2 criteria? No. Patient's initial sepsis screen is negative. Does the patient have a suspected source of infection? No. Patient's initial sepsis screen is negative. Risk Assessment: Do you want to hurt yourself or someone else? Patient reports no desire to harm self or others. Onset of symptoms was August 05, 2022. 13:28 Method Of Arrival: Ambulatory iw 13:28 Acuity: LUCY 3 iw Historical: - Allergies: 13:30 No Known Allergies; iw - Home Meds: 13:30 None [Active]; iw - PMHx: 13:30 gallbladder problems; iw - PSHx: 13:30 Appendectomy; iw - Immunization history:: Client reports receiving the 2nd dose of the Covid vaccine. - Social history:: Smoking status: Patient reports the use of cigarette tobacco products, smokes one-half pack cigarettes per day. Screenin:55 Abuse screen: Denies threats or abuse. Denies injuries from another. Nutritional kc6 screening: No deficits noted. Tuberculosis screening: No symptoms or risk factors identified. Fall Risk No secondary diagnosis (0 pts). IV access (20 points). Ambulatory Aid- None/Bed Rest/Nurse Assist (0 pts). Gait- Normal/Bed Rest/Wheelchair (0 pts) Mental Status- Oriented to own ability (0 pts). Total Zuñiga Fall Scale indicates No Risk (0-24 pts). Assessment: 13:56 General: Appears in no apparent distress. uncomfortable, Behavior is calm, cooperative, kc6 appropriate for age. Pain: Complains of pain in right upper quadrant Pain does not radiate. Pain currently is 10 out of 10 on a pain scale. Quality of pain is described as sharp, Pain began gradually, Is continuous, Alleviated by nothing. Aggravated by eating, drinking, increased activity, repositioning, Noted to be resistant to movement, Also complains of no other associated symptoms. Neuro: Franklin Agitation-Sedation Scale (RASS): 0 - Alert and Calm Level of Consciousness is awake, alert, obeys commands, Oriented to person, place, time, situation, Appropriate for age. Cardiovascular: Heart tones S1 S2 present Capillary refill < 3 seconds. Respiratory: Airway is patent Trachea midline Respiratory effort is even, unlabored, Respiratory pattern is regular, symmetrical, Breath sounds are clear bilaterally. GI: Abdomen is flat, non-distended, Bowel sounds present X 4 quads. Abd is soft X 4 quads Abdomen is tender to palpation in right upper quadrant Reports upper abdominal pain, diarrhea, intolerance of fluids, intolerance of food, nausea, vomiting. : No signs and/or symptoms were reported regarding the genitourinary system. EENT: No signs and/or symptoms were reported regarding the EENT system. Derm: Skin is intact, Skin is dry, Skin is red, Skin temperature is warm. Musculoskeletal: Circulation, motion, and sensation intact. Capillary refill < 3 seconds, Range of motion: intact in all extremities. 14:21 Reassessment: client stated his pain has decreased from a 10/10 to a 6/10. kc6 14:56 Reassessment: Patient appears in no apparent distress at this time. No changes from kc6 previously documented assessment. Patient and/or family updated on plan of care and expected duration. Pain level reassessed. Patient is alert, oriented x 3, equal unlabored respirations, skin warm/dry/pink. Vital Signs: 13:28 BP 143 / 89; Pulse 93; Resp 16; Temp 98.1; Pulse Ox 100% on R/A; Weight 81.65 kg; iw Height 5 ft. 8 in. (172.72 cm); Pain 10/10; 13:58 BP 132 / 83; Pulse 82; Resp 18; Temp 98.1(O); Pulse Ox 98% on R/A; Pain 10/10; kc6 15:15 BP 119 / 74; Pulse 78; Resp 18 S; Pulse Ox 98% on R/A; Pain 6/10; kc6 13:28 Body Mass Index 27.37 (81.65 kg, 172.72 cm) ED Course: 12:43 Patient arrived in ED. rg4 13:13 Willard Russell PA is PHCP. jmm 13:13 Antoine Brar DO is Attending Physician. jmm 13:17 Kalie Penny, RN is Primary Nurse. kc6 13:30 Triage completed. iw 13:30 Arm band placed on. iw 13:55 CBC with Diff Sent. kc6 13:55 CMP Sent. kc6 13:55 Lipase Sent. kc6 14:40 CT Aorta for Dissection In Process Unspecified. EDMS 15:10 Mark Sam MD is Referral Physician. jmm 15:18 Patient has correct armband on for positive identification. Bed in low position. Call kc6 light in reach. Side rails up X2. Adult w/ patient. 15:18 No provider procedures requiring assistance completed. IV discontinued, intact, kc6 bleeding controlled, No redness/swelling at site. Pressure dressing applied. Administered Medications: 13:55 Drug: morphine 4 mg Route: IVP; Infused Over: 4 mins; Site: right forearm; kc6 15:18 Follow up: Response: No adverse reaction; Pain is decreased; RASS: Alert and Calm (0) kc6 13:55 Drug: Zofran (Ondansetron) 4 mg Route: IVP; Site: right forearm; kc6 15:18 Follow up: Response: No adverse reaction; Nausea is decreased kc6 Medication: 15:18 VIS not applicable for this client. kc6 Outcome: 15:11 Discharge ordered by . [facility] 15:18 Condition: stable kc6 15:32 Patient left the ED. Signatures: Dispatcher [employer] EDMS Willard Russell PA PA jmm Williams, Irene, RN RN Ruth Ann Goss rg4 Kalie Penny RN RN kc6
[2022-08-05 15:38] VITALS: TEMP 98.1
[2022-08-05 15:39] VITALS: O2SAT 98
[2022-08-05 15:40] VITALS: BP 119/74
== END 2022-08-05 15:32 | disposition home or self-care (01) ==
LOC: ER 12:41
DX: R10.9 Unspecified abdominal pain (principal); R11.10 Vomiting, unspecified; R19.7 Diarrhea, unspecified; F17.210 Nicotine dependence, cigarettes, uncomplicated
CPT/HCPCS: 36415; 71275; 74175; 80053; 83690; 85025; 96374; 96375; 99283; J2405; Q9967

== ENCOUNTER 2024-04-20 18:58 | Emergency (ER) | payer SELFPAY ==
--- NOTE | 2024-04-20 19:30 | ER ---
Nurse's Notes [facility] Name: Alpesh Lancaster Age: 33 yrs Sex: Male : 1990 Arrival Date: 04/20/2024 Time: 18:58 Bed DX1 Private MD: Diagnosis: Snakebite Presentation: 04/20 19:08 Chief complaint: Patient states: bit by rattlesnake x2 yesterday at 0900. pt reports kc6 n/v/d, SOB, and headache that started today. pain 6/10 the right ankle. Coronavirus screen: At this time, the client does not indicate any symptoms associated with coronavirus-19. Ebola Screen: No symptoms or risks identified at this time. Initial Sepsis Screen: Does the patient meet any 2 criteria? HR > 90 bpm. Does the patient have a suspected source of infection? No. Patient's initial sepsis screen is negative. Risk Assessment: Do you want to hurt yourself or someone else? Patient reports no desire to harm self or others. Onset of symptoms was April 19, 2024. 19:08 Method Of Arrival: Ambulatory [facility] 19:08 Acuity: LUCY 2 kc6 Triage Assessment: 19:08 Bite description: bite sustained to right foot by a snake, animal information: kc6 vaccination(s) is not up to date. 19:08 General: Appears in no apparent distress. comfortable, well groomed, well developed, kc6 Behavior is calm, cooperative, appropriate for age. Pain: Complains of pain in right foot. EENT: No signs and/or symptoms were reported regarding the EENT system. Neuro: Level of Consciousness is awake, alert, obeys commands, Oriented to person, place, time, situation, Appropriate for age Reports headache. Cardiovascular: Capillary refill < 3 seconds. Respiratory: Reports shortness of breath Airway is patent Trachea midline Respiratory effort is even, unlabored, Respiratory pattern is regular, symmetrical. GI: Reports diarrhea, nausea, vomiting, Patient currently denies abdominal pain. : No signs and/or symptoms were reported regarding the genitourinary system. Derm: Skin is healthy with good turgor, Skin is pink, warm \T\ dry. Musculoskeletal: No signs and/or symptoms reported regarding the musculoskeletal system. Circulation, motion, and sensation intact. Capillary refill < 3 seconds, Range of motion: intact in all extremities. Historical: - Allergies: 19:10 No Known Allergies; kc6 - PMHx: 19:10 gallbladder problems; kc6 - PSHx: 19:10 Appendectomy; kc6 - Immunization history:: Client reports having NOT received the Covid vaccine. Flu vaccine is not up to date. - Infectious Disease History:: Denies. - Social history:: Smoking status: Reported history of juuling and/or vaping. Screenin:35 [facility] ED Fall Risk Assessment (Adult) History of falling in the last 3 months, kc6 including since admission No falls in past 3 months (0 pts) Confusion or Disorientation No (0 pts) Intoxicated or Sedated No (0 pts) Impaired Gait No (0 pts) Mobility Assist Device Used No (0 pt) Altered Elimination No (0 pt) Score/Fall Risk Level 0 - 2 = Low Risk. Abuse screen: Denies threats or abuse. Denies injuries from another. Nutritional screening: No deficits noted. Tuberculosis screening: No symptoms or risk factors identified. Assessment: 19:08 Reassessment: please see triage. kc6 Vital Signs: 19:08 BP 151 / 106; Pulse 107; Resp 20 S; Temp 98.4; Pulse Ox 100% on R/A; Weight 86.64 kg kc6 (R); Height 5 ft. 8 in. (R); Pain 6/10; 19:08 Body Mass Index 29.04 (86.64 kg, 172.72 cm) kc6 19:08 Pain Scale: Adult kc6 ED Course: 19:03 Patient arrived in ED. ra3 19:08 Arm band placed on. kc6 19:10 Triage completed. kc6 19:11 Too De La Vega MD is Attending Physician. sp3 19:35 Patient has correct armband on for positive identification. Adult w/ patient. kc6 19:35 No provider procedures requiring assistance completed. Patient did not have IV access kc6 during this emergency room visit. Administered Medications: No medications were administered Medication: 19:36 VIS not applicable for this client. kc6 Outcome: 19:29 Discharge ordered by . sp3 19:35 Discharged to home ambulatory, with family, with significant other, kc6 19:35 Condition: good 19:35 Discharge instructions given to patient, Instructed on discharge instructions, follow up and referral plans. medication usage, wound care, Demonstrated understanding of instructions, follow-up care, medications, wound care, Prescriptions given X 1, 19:36 Patient left the ED. kc6 Signatures: Too De La Vega MD MD sp3 Kalie Penny RN RN kc6 Maribel Ayala ra3 Corrections: (The following items were deleted from the chart) 19:11 19:08 Pulse 107bpm; Resp 20bpm; Spontaneous; Pulse Ox 100% RA; Temp 98.4F; 86.64 kg kc6 Reported; Height 5 ft. 8 in. Reported; BMI: 29.0; Pain 02/01, Adult; kc6
--- NOTE | 2024-04-20 19:30 | EDPHYS ---
Physician Documentation [facility] Name: Alpesh Lancaster Age: 33 yrs Sex: Male : 1990 Arrival Date: 04/20/2024 Time: 18:58 Bed DX1 Private MD: ED Physician Too De La Vega HPI: 04/20 19:27 This 33 yrs old Male presents to ER via Ambulatory with complaints of Snake bite. sp3 19:27 33-year-old male with no significant past medical history presents with chief complaint sp3 left foot bite from a "baby snake" that occurred yesterday morning. Patient states that he felt something in his boot and then felt a small sting like a mosquito bite and then felt again a few minutes later. He took his boot off and found a small snake. Unknown exact type of snake. Patient denies any necrosis, significant redness, streaking, lymphadenopathy, fever, proximally ascending symptoms, or any other signs or symptoms on ROS at this time.. Historical: - Allergies: 19:10 No Known Allergies; kc6 - PMHx: 19:10 gallbladder problems; kc6 - PSHx: 19:10 Appendectomy; kc6 - Immunization history:: Client reports having NOT received the Covid vaccine. Flu vaccine is not up to date. - Infectious Disease History:: Denies. - Social history:: Smoking status: Reported history of juuling and/or vaping. ROS: 19:27 Constitutional: Negative for fever, chills, and weight loss, Eyes: Negative for injury, sp3 pain, redness, and discharge, Neck: Negative for injury, pain, and swelling, Cardiovascular: Negative for chest pain, palpitations, and edema, Respiratory: Negative for shortness of breath, cough, wheezing, and pleuritic chest pain, Abdomen/GI: Negative for abdominal pain, nausea, vomiting, diarrhea, and constipation, Back: Negative for injury and pain, MS/Extremity: Negative for injury and deformity, Neuro: Negative for headache, weakness, numbness, tingling, and seizure, Psych: Negative for depression, anxiety, suicide ideation, homicidal ideation, and hallucinations, Allergy/Immunology: Negative for hives, rash, and allergies, Endocrine: Negative for neck swelling, polydipsia, polyuria, polyphagia, and marked weight changes, 19:27 All other systems are negative, Exam: 19:28 Constitutional: This is a well developed, well nourished patient who is awake, alert, sp3 and in no acute distress. Head/Face: Normocephalic, atraumatic. Eyes: Pupils equal round and reactive to light, extra-ocular motions intact. Lids and lashes normal. Conjunctiva and sclera are non-icteric and not injected. Cornea within normal limits. Periorbital areas with no swelling, redness, or edema. Neck: Trachea midline, no thyromegaly or masses palpated, and no cervical lymphadenopathy. Supple, full range of motion without nuchal rigidity, or vertebral point tenderness. No Meningismus. Chest/axilla: Normal chest wall appearance and motion. Nontender with no deformity. No lesions are appreciated. Cardiovascular: Regular rate and rhythm with a normal S1 and S2. No gallops, murmurs, or rubs. Normal PMI, no JVD. No pulse deficits. Respiratory: Lungs have equal breath sounds bilaterally, clear to auscultation and percussion. No rales, rhonchi or wheezes noted. No increased work of breathing, no retractions or nasal flaring. Abdomen/GI: Soft, non-tender, with normal bowel sounds. No distension or tympany. No guarding or rebound. No evidence of tenderness throughout. Back: No spinal tenderness. No costovertebral tenderness. Full range of motion. Neuro: Awake and alert, GCS 15, oriented to person, place, time, and situation. Cranial nerves II-XII grossly intact. Motor strength 5/5 in all extremities. Sensory grossly intact. Cerebellar exam normal. Normal gait. Psych: Awake, alert, with orientation to person, place and time. Behavior, mood, and affect are within normal limits. 19:28 Musculoskeletal/extremity: 1 area on the medial lower leg just proximal to the ankle and 1 on the dorsal foot consisting of 2 very small presumably bite sigala. No local necrosis, blistering, cellulitis or any other signs or symptoms noted.. Vital Signs: 19:08 BP 151 / 106; Pulse 107; Resp 20 S; Temp 98.4; Pulse Ox 100% on R/A; Weight 86.64 kg kc6 (R); Height 5 ft. 8 in. (R); Pain 6/10; 19:08 Body Mass Index 29.04 (86.64 kg, 172.72 cm) kc6 19:08 Pain Scale: Adult kc6 MDM: 19:13 Patient medically screened. sp3 19:29 Data reviewed: vital signs, nurses notes. ED course: Clinically I do not believe sp3 patient has a venomous bite. We will go ahead and treat prophylactically with Bactrim to cover any potential skin infection. Vital signs reviewed. Heart rate in the 90s on my exam. Patient is a bit nervous. Patient will be safely discharged home at this time.. Administered Medications: No medications were administered Disposition Summary: 04/20/24 19:29 Discharge Ordered Notes: Location: Home sp3 Condition: Stable sp3 Diagnosis - Snakebite sp3 Followup: sp3 - With: Private Physician - When: Upon discharge from the Emergency Department - Reason: Continuance of care Discharge Instructions: - Discharge Summary Sheet sp3 - Snake Bite sp3 Forms: - Medication Reconciliation Form sp3 - Antibiotic Education sp3 - Prescription Opioid Use sp3 - Patient Portal Instructions sp3 - Leadership Thank You Letter sp3 Prescriptions: - Bactrim DS 800-160 mg Oral tablet - take 1 tablet ORAL route every 12 hours for 5 days; 10 tablet; Refills: 0, sp3 Product Selection Permitted Signatures: Too De La Vega MD MD sp3 Kalie Penny RN RN kc6
[2024-04-20 19:41] VITALS: BP 151/106; TEMP 98.4; O2SAT 100
== END 2024-04-20 19:36 | disposition home or self-care (01) ==
LOC: ER 18:58
DX: T63.001A Toxic effect of unspecified snake venom, accidental (unintentional), initial encounter (principal)
CPT/HCPCS: 99283

== ENCOUNTER 2024-08-09 19:08 | Emergency (ER) | payer SELFPAY ==
--- NOTE | 2024-08-09 20:27 | RAD REPORT ---
EXAMINATION: US Abdomen Exam Limited CLINICAL HISTORY: HS MAIN N ABD PAIN Bed Name: [id number] COMPARISON: None. TECHNIQUE: Limited upper abdominal grayscale and color flow sonographic images. FINDINGS: Gallbladder: Contracted limiting evaluation. No evidence of gallstones. Reportedly negative sonograph ic Hernández sign. Bile ducts: No intrahepatic or extrahepatic biliary dilatation. Common bile duct measures 3 mm. Liver: Visualized portions of the liver demonstrate normal echogenicity with no suspicious findings. Fluid: No ascites. IMPRESSION: No abnormalities on right upper quadrant ultrasound. Gallbladder evaluation is limited given its cont raction.
[2024-08-09] MEDS ORDERED: ONDANSETRON 4 MG/2 ML VIAL ONE (21:21)
[2024-08-09] MEDS ORDERED: NA CHLORIDE 0.9% 1,000 ML ONE (21:22)
[2024-08-09] MEDS ORDERED: MORPHINE 4 MG/ML SYR ONE (21:22)
[2024-08-09 21:36] LABS: Absolute Basophils 0.1 K/uL (0-0.5); Absolute Eosinophils 0.2 K/uL (0-0.5); Absolute Lymphocytes (CBC) 3.3 K/uL (0.7-4.9); Absolute Monocytes 0.9 K/uL (0.1-1.3); Absolute Neutrophil 4.8 K/uL (1.8-8.0); Basophils % 1.4 % (0-1.3); Eosinophils % 1.8 % (0-4.4); Hematocrit 42.9 % (39.6-49.0); Hemoglobin 14.9 g/dL (13.6-17.9); Lymphocytes % 35.5 % (15.3-44.8); MCH 29.7 pg (27.0-35.0); MCHC 34.6 g/dL (32.0-36.0); MCV 85.9 fL (80-100); MPV 8.4 fL (7.6-11.3); Monocytes % 9.3 % (3.3-12.3); Platelets 290 thou/uL (152-406); RBC Red Blood Cell Count 4.99 M/uL (4.33-5.43)
[2024-08-09 21:44] LABS: Albumin 3.5 g/dL (3.4-5.0); Albumin/Globulin Ratio 0.9 (1.1-1.8); Anion Gap 8.8 mEq/L (5.0-15.0); Bilirubin Total 0.2 mg/dL (0.2-1.0); Globulin 3.9 g/dL (2.3-3.5); Potassium 3.8 mEq/L (3.5-5.1); Protein, Total 7.4 g/dL (6.4-8.2)
--- NOTE | 2024-08-09 22:44 | RAD REPORT ---
EXAMINATION: CT Abdomen Pelvis W Contrast CLINICAL INDICATION: Male, 34 years old. ABD PAIN TECHNIQUE: CT abdomen and pelvis was performed, after the administration of IV contrast[facility]. Axial, sagittal and coronal reconstructions were obtained. One or more of the following dose reduction techniques were used: Automated exposure control, adjustment of the mA and k V according to patient size, and iterative reconstruction. Unless otherwise specified, incidental findings do not require dedicated imaging follow-up. COMPARISON: 07/26/2022 and 08/05/2022 CT abdomen FINDINGS: LOWER CHEST: The visualized lung bases are clear. LIVER: Normal in size and contour. No focal lesion. BILIARY SYSTEM: No suspicious abnormalities. SPLEEN: Normal size. No focal lesion. PANCREAS: No mass, ductal dilation, or celeste-pancreatic fluid. ADRENALS: Normal; no mass. KIDNEYS: Normal size and contour. No hydronephrosis. URINARY BLADDER: Unremarkable. GASTROINTESTINAL TRACT: Mild prominence of the distal duodenum/proximal jejunum, nonspecific. No evid ence of free air, significant intra-abdominal free fluid, bowel obstruction or abscess. APPENDIX: Appendix surgically absent. LYMPH NODES: No lymphadenopathy. MUSCULOSKELETAL: No acute or suspicious osseous abnormality. ADDITIONAL FINDINGS: None. IMPRESSION: No acute or concerning abnormalities seen in the abdomen or pelvis.
--- NOTE | 2024-08-10 00:02 | ER ---
Nurse's Notes [facility] Name: Alpesh Lancaster Age: 34 yrs Sex: Male : 1990 Arrival Date: 08/09/2024 Time: 19:08 Bed 19 Private MD: Diagnosis: Duodenitis;Upper abdominal pain, unspecified;Nausea with vomiting, unspecified;Diarrhea, unspecified Presentation: 08/09 19:39 Chief complaint: Patient states: ABDOMINAL PAIN, DIZZINESS, DIARRHEA, VOMITING ONSET cm10 TODAY. PT REPORTS THAT THE PAIN IS TO HIS RUQ AND RADIATES TO HIS BACK. Coronavirus screen: Client denies travel out of the [place] in the last 14 days. Ebola Screen: Patient denies travel to an Ebola-affected area in the 21 days before illness onset. No symptoms or risks identified at this time. Initial Sepsis Screen: Does the patient meet any 2 criteria? No. Patient's initial sepsis screen is negative. Does the patient have a suspected source of infection? No. Patient's initial sepsis screen is negative. Risk Assessment: Do you want to hurt yourself or someone else? Patient reports no desire to harm self or others. Onset of symptoms was August 09, 2024. 19:39 Method Of Arrival: Ambulatory cm10 19:39 Acuity: LUCY 3 cm10 Triage Assessment: 19:42 General: Appears in no apparent distress. uncomfortable, Behavior is calm, cooperative. cm10 Neuro: No deficits noted. Level of Consciousness is awake, alert, obeys commands, Oriented to person, place, time, situation, Appropriate for age. Respiratory: No deficits noted. Airway is patent Respiratory effort is even, unlabored, Respiratory pattern is regular, symmetrical. Musculoskeletal: No deficits noted. Range of motion: intact in all extremities. Historical: - Allergies: 19:41 No Known Allergies; cm10 - PMHx: 19:41 gallbladder problems; cm10 - PSHx: 19:41 Appendectomy; cm10 - Immunization history:: Adult Immunizations up to date. - Infectious Disease History:: Denies. - Social history:: Smoking status: Patient reports use of chewing tobacco. Reported history of juuling and/or vaping. Screenin:13 [facility] ED Fall Risk Assessment (Adult) History of falling in the last 3 months, kj2 including since admission No falls in past 3 months (0 pts) Confusion or Disorientation No (0 pts) Intoxicated or Sedated No (0 pts) Impaired Gait No (0 pts) Mobility Assist Device Used No (0 pt) Altered Elimination No (0 pt) Score/Fall Risk Level 0 - 2 = Low Risk Maintained a safe environment, Hourly rounding (assess needs \T\ fall precautionary measures) done. Abuse screen: Denies threats or abuse. Denies injuries from another. Nutritional screening: No deficits noted. Tuberculosis screening: No symptoms or risk factors identified. Assessment: 21:00 General: Appears in no apparent distress. uncomfortable. Pain: Complains of pain in kj2 right upper quadrant Pain currently is 9 out of 10 on a pain scale. Neuro: Level of Consciousness is awake, alert, obeys commands, Oriented to person, place, time, situation. Cardiovascular: Patient's skin is warm and dry. Respiratory: Airway is patent Respiratory effort is unlabored. GI: Reports diarrhea, nausea. : No signs and/or symptoms were reported regarding the genitourinary system. 22:00 Reassessment: Patient appears in no apparent distress at this time. Patient and/or [facility] family updated on plan of care and expected duration. Pain level reassessed. Patient is alert, oriented x 3, equal unlabored respirations, skin warm/dry/pink. 23:00 Reassessment: Patient appears in no apparent distress at this time. Patient and/or 2 family updated on plan of care and expected duration. Pain level reassessed. Patient is alert, oriented x 3, equal unlabored respirations, skin warm/dry/pink. 23:35 GI: Bowel sounds present X 4 quads. Abdomen is tender to palpation X 4 quads. [facility] 08/10 00:08 Reassessment: Patient appears in no apparent distress at this time. Patient and/or 2 family updated on plan of care and expected duration. Pain level reassessed. Patient is alert, oriented x 3, equal unlabored respirations, skin warm/dry/pink. Vital Signs: 08/09 19:39 BP 148 / 94; Pulse 106; Resp 17; Temp 97.7; Pulse Ox 100% on R/A; Weight 86.18 kg; cm10 Height 5 ft. 8 in. ; Pain 10/; 21:34 BP 130 / 90; Pulse 90; Resp 20; Pulse Ox 100% on R/A; kj2 22:30 BP 134 / 88; Pulse 92; Resp 18; Pulse Ox 100% ; kj2 08/10 00:08 BP 122 / 85; Pulse 86; Resp 20; Temp 98(O); Pulse Ox 100% on R/A; kj2 08/09 19:39 Body Mass Index 28.89 (86.18 kg, 172.72 cm) cm10 08/09 19:39 Pain Scale: Adult cm10 ED Course: 08/09 19:11 Patient arrived in ED. im 19:35 Shaina Leal PA-C is PHCP. sb4 19:35 Ramses Paul MD is Attending Physician. sb4 19:41 Triage completed. cm10 19:42 Arm band placed on right wrist. Patient placed in waiting room. cm10 20:21 US Abdomen Limited In Process Unspecified. EDMS 21:06 CBC with Diff Sent. ha1 21:06 CMP Sent. ha1 21:06 Lipase Sent. ha1 21:06 Inserted saline lock: 20 gauge in right antecubital area, using aseptic technique. ha1 Blood collected. Flushed with 10 mL NS. 21:11 Sara Carlos, RN is Primary Nurse. kj2 21:14 Patient has correct armband on for positive identification. Bed in low position. Call kj2 light in reach. Adult w/ patient. Provided Education on: call light. 22:10 CT Abd/Pelvis - IV Contrast Only In Process Unspecified. EDMS 23:35 No provider procedures requiring assistance completed. kj2 08/10 00:02 Blue Townsend MD is Referral Physician. sb4 00:28 IV discontinued, intact, bleeding controlled, No redness/swelling at site. Pressure kj2 dressing applied. Administered Medications: 08/09 21:29 Drug: morphine IVP or IV 4 mg IVP once over 4 mins Route: IVP; Infused Over: 4 mins; kj2 Site: right antecubital; 08/10 00:08 Follow up: Response: No adverse reaction kj2 08/09 21:32 Drug: NS 0.9% IV 1000 ml IV at 1 bolus Per protocol; to be given as a bolus over 60 kj2 minutes Route: IV; Rate: 1 bolus; Site: right antecubital; 21:33 Drug: Ondansetron IVP 4 mg IVP once; over 2 minutes Route: IVP; Site: right antecubital;kj2 08/10 00:07 Follow up: Response: No adverse reaction kj2 00:26 Drug: metoCLOPramide IVP 10 mg IVP once; over 1 to 2 minutes Route: IVP; Site: right kj2 antecubital; 00:27 Follow up: Response: Medication administered at discharge. kj2 00:27 Drug: Pantoprazole IVP 40 mg IVP once Route: IVP; Site: right antecubital; kj2 00:27 Follow up: Response: Medication administered at discharge. kj2 Medication: 08/09 21:14 VIS not applicable for this client. kj2 Outcome: 08/10 00:02 Discharge ordered by . sb4 00:09 Discharged to home ambulatory, kj2 00:09 Condition: stable 00:09 Discharge instructions given to patient, Instructed on discharge instructions, follow up and referral plans. medication usage, Demonstrated understanding of instructions, follow-up care, medications, Prescriptions given X 4, 00:28 Patient left the ED. kj2 Signatures: Dispatcher [employer] EDMS Alannah Hwang RN RN ha1 Shaina Leal, PA-C PA-C sb4 Jannette Brice Clarissa RN RN cm10 Sara Carlos RN RN kj2
--- NOTE | 2024-08-10 00:03 | EDPHYS ---
Physician Documentation [facility] Name: Alpesh Lancaster Age: 34 yrs Sex: Male : 1990 Arrival Date: 08/09/2024 Time: 19:08 Bed 19 Private MD: ED Physician Ramses Paul HPI: 08/09 19:51 This 34 yrs old Male presents to ER via Ambulatory with complaints of Abdominal Pain, sb4 Vomiting/Diarrhea, Dizziness. 19:51 The patient presents with abdominal pain in the right upper quadrant. patient reports sb4 gall bladder issues for several years now, but has had it under control with dietary modifications. however, states that the past few days, he has had a lot of pain in his RUQ and his stool has been greasy and floating in the toilet. he also endorses nausea, vomiting, dizziness, and a syncopal episode today due to the pain. Historical: - Allergies: 19:41 No Known Allergies; cm10 - PMHx: 19:41 gallbladder problems; cm10 - PSHx: 19:41 Appendectomy; cm10 - Immunization history:: Adult Immunizations up to date. - Infectious Disease History:: Denies. - Social history:: Smoking status: Patient reports use of chewing tobacco. Reported history of juuling and/or vaping. ROS: 19:51 Constitutional: Negative for fever, chills, and weight loss, sb4 19:51 Abdomen/GI: Positive for abdominal pain, nausea, vomiting, and diarrhea, 19:51 All other systems are negative, Exam: 19:51 Head/Face: Normocephalic, atraumatic. Eyes: Extra-ocular motions intact. Periorbital sb4 areas with no swelling, redness, or edema. ENT: Mucous membranes moist. Cardiovascular: Regular rate and rhythm with a normal S1 and S2. Respiratory: No increased work of breathing, no retractions or nasal flaring. Skin: Warm, dry with normal turgor. Normal color with no rashes, no lesions, and no evidence of cellulitis. 19:51 Constitutional: The patient appears alert, awake, in obvious pain, uncomfortable, 19:51 Abdomen/GI: Palpation: soft, moderate abdominal tenderness, in the right upper quadrant, Vital Signs: 19:39 BP 148 / 94; Pulse 106; Resp 17; Temp 97.7; Pulse Ox 100% on R/A; Weight 86.18 kg; cm10 Height 5 ft. 8 in. ; Pain 10/10; 21:34 BP 130 / 90; Pulse 90; Resp 20; Pulse Ox 100% on R/A; kj2 22:30 BP 134 / 88; Pulse 92; Resp 18; Pulse Ox 100% ; kj2 08/10 00:08 BP 122 / 85; Pulse 86; Resp 20; Temp 98(O); Pulse Ox 100% on R/A; kj2 08/09 19:39 Body Mass Index 28.89 (86.18 kg, 172.72 cm) cm10 08/09 19:39 Pain Scale: Adult cm10 MDM: 08/09 19:35 Medical Screening Exam initiated sb4 08/10 00:01 Data reviewed: vital signs, nurses notes, lab test result(s), radiologic studies, and sb4 as a result, I will discharge patient. 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 08/09 19:49 Order name: CBC with Diff; Complete Time: 21:50 sb4 08/09 19:49 Order name: CMP; Complete Time: 21:45 sb4 08/09 19:49 Order name: Lipase; Complete Time: 21:45 sb4 08/09 19:49 Order name: CT Abd/Pelvis - IV Contrast Only; Complete Time: 22:45 sb4 08/09 19:49 Order name: US Abdomen Limited; Complete Time: 20:27 sb4 08/09 19:49 Order name: IV Saline Lock; Complete Time: 21:06 sb4 08/09 19:49 Order name: Labs collected and sent; Complete Time: 21:06 sb4 08/09 22:48 Order name: PO challenge; Complete Time: 23:35 sb4 Administered Medications: 08/09 21:29 Drug: morphine IVP or IV 4 mg IVP once over 4 mins Route: IVP; Infused Over: 4 mins; kj2 Site: right antecubital; 08/10 00:08 Follow up: Response: No adverse reaction kj2 08/09 21:32 Drug: NS 0.9% IV 1000 ml IV at 1 bolus Per protocol; to be given as a bolus over 60 kj2 minutes Route: IV; Rate: 1 bolus; Site: right antecubital; 21:33 Drug: Ondansetron IVP 4 mg IVP once; over 2 minutes Route: IVP; Site: right antecubital;kj2 08/10 00:07 Follow up: Response: No adverse reaction kj2 00:26 Drug: metoCLOPramide IVP 10 mg IVP once; over 1 to 2 minutes Route: IVP; Site: right kj2 antecubital; 00:27 Follow up: Response: Medication administered at discharge. kj2 00:27 Drug: Pantoprazole IVP 40 mg IVP once Route: IVP; Site: right antecubital; kj2 00:27 Follow up: Response: Medication administered at discharge. kj2 Disposition Summary: 08/10/24 00:02 Discharge Ordered Notes: Location: Home sb4 Problem: an ongoing problem sb4 Symptoms: have improved sb4 Condition: Stable sb4 Diagnosis - Duodenitis sb4 - Upper abdominal pain, unspecified sb4 - Nausea with vomiting, unspecified sb4 - Diarrhea, unspecified sb4 Followup: sb4 - With: Blue Townsend MD - When: 1 week - Reason: Further diagnostic work-up, Recheck today's complaints, Re-evaluation by your physician Discharge Instructions: - Discharge Summary Sheet sb4 - Food Choices to Help Relieve Diarrhea, Adult sb4 - Abdominal Pain, Adult, [id number] sb4 - Duodenitis sb4 Forms: - Patient Portal Instructions sb4 - Leadership Thank You Letter sb4 Prescriptions: - Protonix 40 mg Oral Tablet - take 1 tablet ORAL route once daily; 30 tablet; Refills: 0, Product Selection sb4 Permitted - Diclofenac Sodium 75 mg Oral Tablet Sustained Release - take 1 tablet ORAL route 2 times per day; 30 tablet; Refills: 0, Product sb4 Selection Permitted - dicyclomine 10 mg Oral capsule - take 1 capsule ORAL route 3 times per day; 20 capsule; Refills: 0, Product sb4 Selection Permitted - ondansetron 8 mg Oral Tablet,disintegrating - take 1 tablet ORAL route every 8 hours; 10 tablet; Refills: 0, Product sb4 Selection Permitted Signatures: Dispatcher [employer] EDMS Shaina Leal, KAYLAH ADRIAN sb4 Isabel Sam, RN RN cm10 Sara Carlos, RN RN kj2 Corrections: (The following items were deleted from the chart) 08/09 19:50 19:50 Abdomen Pelvis W Con+CT.RAD.BRZ ordered. EDMS EDMS 19:50 19:50 Abdomen Limited+US.RAD.BRZ ordered. EDMS EDMS
[2024-08-10] MEDS ORDERED: PANTOPRAZOLE 40 MG INJ ONE (00:17)
[2024-08-10] MEDS ORDERED: METOCLOPRAMIDE 10 MG/2mL INJ ONE (00:17)
[2024-08-10 00:35] VITALS: O2SAT 100
[2024-08-10 00:40] VITALS: BP 122/85; TEMP 98
== END 2024-08-10 00:28 | disposition home or self-care (01) ==
LOC: ER 19:08
DX: K29.80 Duodenitis without bleeding (principal); R11.2 Nausea with vomiting, unspecified; R19.7 Diarrhea, unspecified
CPT/HCPCS: 36415; 74177; 76705; 80053; 83690; 85025; 96374; 96375; 99284; J2405; J2470; J2765; J7030; Q9967

== ENCOUNTER 2024-10-22 20:30 | Emergency (ER) | payer SELFPAY ==
[2024-10-22] MEDS ORDERED: NA CHLORIDE 0.9% 1,000 ML ONE (20:47)
[2024-10-22 21:17] LABS: Absolute Basophils 0.1 K/uL (0-0.5); Absolute Neutrophil 14.1 K/uL (1.8-8.0); Basophils % 0.4 % (0-1.3); Eosinophils % 0.1 % (0-4.4); Hematocrit 42.6 % (39.6-49.0); Hemoglobin 14.5 g/dL (13.6-17.9); Lymphocytes % 11.4 % (15.3-44.8); MCV 85.1 fL (80-100); Monocytes % 6.1 % (3.3-12.3); Platelets 295 thou/uL (152-406); Red Cell Distribution Width 13.5 % (12.1-15.2)
[2024-10-22 21:31] LABS: Anion Gap 7.6 mEq/L (5.0-15.0); Potassium 3.6 mEq/L (3.5-5.1)
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
[2024-10-22] MEDS ORDERED: IBUPROFEN 400 MG TAB ONE (23:31)
[2024-10-22] MEDS ORDERED: HYDROCODONE/APAP 7.5/325 MG TAB ONE (23:31)
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
[2024-10-23 00:34] VITALS: BP 133/79; TEMP 98; O2SAT 98
== END 2024-10-23 00:25 | disposition home or self-care (01) ==
LOC: ER 20:30
PROC: 2W3TX1Z Immobilization of Left Foot using Splint (ICD-10-PCS; principal; 2024-10-23)
DX: S92.322A Displaced fracture of second metatarsal bone, left foot, initial encounter for closed fracture (principal); S70.212A Abrasion, left hip, initial encounter; S20.411A Abrasion of right back wall of thorax, initial encounter; S50.812A Abrasion of left forearm, initial encounter; S50.811A Abrasion of right forearm, initial encounter; V86.56XA Driver of dirt bike or motor/cross bike injured in nontraffic accident, initial encounter
CPT/HCPCS: 36415; 70450; 71260; 72125; 74177; 80048; 85025; 86850; 86900; 86901; 96360; 99285; J7030; Q9967

== ENCOUNTER 2024-11-10 20:14 | Emergency (ER) | payer SELFPAY ==
--- NOTE | 2024-11-10 21:39 | RAD REPORT ---
EXAMINATION: CT LUMBAR SPINE WITHOUT CONTRAST CLINICAL INDICATION: Male, 34 years old. PAIN TECHNIQUE: Axial CT images were obtained through the lumbar spine in soft tissue and bone windows wit hout intravenous contrast. Coronal and Sagittal reformatted images were created from the data set. One or more of the following dose reduction techniques were used: Automated exposure control, adjustm ent of the mA and/ or kV according to patient size, and/or iterative reconstruction. Unless otherwise specified, incidental findings do not require dedicated imaging follow-up. [id number]. COMPARISON: No prior exam. FINDINGS: For purposes of this dictation, it is assumed that there are 5 non rib-bearing lumbar type vertebrae, and the most caudal fully segmented lumbar vertebra is labeled L5. ALIGNMENT: The lumbar spine demonstrates normal alignment without scoliosis or spondylolisthesis. BONES: No significant soft tissue abnormalities. No aggressive osseous lesions. DISCS: Intervertebral disc space heights are maintained. LEVELS: No significant spinal canal or neural foraminal stenosis. No visualized abnormality within th e spinal canal. SOFT TISSUE: No soft tissue abnormalities. IMPRESSION: No acute lumbar spine abnormalities.
[2024-11-10] MEDS ORDERED: DIAZEPAM 5 MG TABLET ONE (21:50)
[2024-11-10] MEDS ORDERED: dexAMETHasone 10 MG/ML VIAL ONE (21:50)
[2024-11-10] MEDS ORDERED: KETOROLAC 30 MG/ML INJ ONE (21:50)
--- NOTE | 2024-11-10 23:38 | EDPHYS ---
Physician Documentation [facility] Name: Alpesh Lancaster Age: 34 yrs Sex: Male : 1990 Arrival Date: 11/10/2024 Time: 20:14 Bed 17 Private MD: ED Physician Farhat Pinedo HPI: 11/11 00:03 This 34 yrs old Male presents to ER via Ambulatory with complaints of Low Back Pain. sb4 00:03 The patient presents with pain that is acute, with no known mechanism of injury. The sb4 symptoms are located in the low back, right low back. The pain does not radiate. The problem was sustained without known cause, from unknown cause. Onset: The symptoms/episode began/occurred 1 week(s) ago. The patient has experienced a previous episode, and the symptoms today are exactly the same. The patient has not recently seen a physician. Historical: - Allergies: 11/10 20:27 No Known Allergies; cm10 - PMHx: 20:27 gallbladder problems; cm10 - PSHx: 20:27 Appendectomy; cm10 - Immunization history:: Adult Immunizations up to date. - Infectious Disease History:: Denies. - Social history:: Smoking status: unknown. ROS: 11/11 00:03 Constitutional: Negative for fever, chills, and weight loss, sb4 Back: Positive for pain at rest, pain with movement, of the right low back, All other systems are negative, Exam: 00:03 Constitutional: This is a well developed, well nourished patient who is awake, alert, sb4 and in no acute distress. Head/Face: Normocephalic, atraumatic. Eyes: Extra-ocular motions intact. Periorbital areas with no swelling, redness, or edema. ENT: Mucous membranes moist. Respiratory: No increased work of breathing, no retractions or nasal flaring. Back: No spinal tenderness. No costovertebral tenderness. Full range of motion. Neuro: Awake and alert, GCS 15, oriented to person, place, time, and situation. Motor strength 5/5 in all extremities. Sensory grossly intact. Vital Signs: 11/10 20:28 BP 145 / 106; Pulse 94; Resp 18; Temp 98.2(O); Pulse Ox 100% on R/A; Weight 89.81 kg; cm10 Height 5 ft. 8 in. ; Pain 10/10; 22:32 BP 124 / 76; Pulse 90; Resp 18; Pulse Ox 100% on R/A; kj2 23:45 BP 131 / 72; Pulse 72; Resp 18; Temp 98.2; Pulse Ox 100% on R/A; kj2 20:28 Body Mass Index 30.11 (89.81 kg, 172.72 cm) cm10 20:28 Pain Scale: Adult cm10 MDM: 20:33 Medical Screening Exam initiated sb4 11/11 00:04 Data reviewed: vital signs, nurses notes, radiologic studies, and as a result, I will sb4 discharge patient. Counseling: I had a detailed discussion with the patient and/or guardian regarding the historical points, exam findings, and any diagnostic results supporting the discharge/admit diagnosis, radiology results, the need for outpatient follow up, for definitive care, to return to the emergency department if symptoms worsen or persist or if there are any questions or concerns that arise at home. 11/10 20:34 Order name: CT Lumbar Spine Wo Con; Complete Time: 21:39 sb4 Administered Medications: 11/10 22:01 Drug: Ketorolac IM 30 mg IM once Route: IM; Site: right deltoid; kj2 23:44 Follow up: Response: No adverse reaction kj2 22:01 Drug: Dexamethasone IM 10 mg IM once Route: IM; Site: left deltoid; kj2 23:44 Follow up: Response: No adverse reaction kj2 22:01 Drug: Diazepam PO 5 mg PO once Route: PO; kj2 23:44 Follow up: Response: No adverse reaction kj2 23:50 Drug: HYDROcodone-acetaminophen PO 5 mg-325 mg 1 tabs PO once Route: PO; kj2 23:50 Follow up: Response: No adverse reaction; Medication administered at discharge. kj2 Disposition: 11/11 21:35 Co-signature as Attending Physician, Farhat Pinedo MD I agree with the assessment sp4 and plan of care. I reviewed the patient's care provided by the Advanced Practice Provider and agree with the diagnosis and treatment plan. Disposition Summary: 11/10/24 23:38 Discharge Ordered Notes: Location: Home sb4 Problem: new sb4 Symptoms: are unchanged sb4 Condition: Stable sb4 Diagnosis - Strain of muscle, fascia and tendon of lower back sb4 Followup: sb4 - With: Private Physician - When: As needed - Reason: Recheck today's complaints, Re-evaluation by your physician Discharge Instructions: - Discharge Summary Sheet sb4 - Acute Back Pain, Adult sb4 - Low Back Sprain or Strain Rehab sb4 Forms: - Work release form sb4 - Patient Portal Instructions sb4 - Leadership Thank You Letter sb4 Prescriptions: - Cyclobenzaprine 10 mg Oral Tablet - take 1 tablet ORAL route every 8 hours As needed; 30 tablet; Refills: 0, sb4 Product Selection Permitted - Diclofenac Sodium 75 mg Oral Tablet Sustained Release - take 1 tablet ORAL route 2 times per day; 30 tablet; Refills: 0, Product sb4 Selection Permitted - Medrol (Brando) 4 mg Oral Tablets, Dose Pack - take 1 tablet ORAL route as directed - follow package instructions; 1 packet; sb4 Refills: 0, Product Selection Permitted Signatures: Dispatcher [employer] Shaina Taylor PA-C PA-C sb4 Farhat Pinedo MD MD sp4 Isabel Sam RN RN cm10 Sara Carlos RN RN kj2 Corrections: (The following items were deleted from the chart) 11/10 20:34 20:34 Spine Lumbar Wo Con+CT.RAD.BRZ ordered. MORTEZA PRO
--- NOTE | 2024-11-10 23:38 | ER ---
Nurse's Notes [facility] Name: Alpesh Lancaster Age: 34 yrs Sex: Male : 1990 Arrival Date: 11/10/2024 Time: 20:14 Bed 17 Private MD: Diagnosis: Strain of muscle, fascia and tendon of lower back Presentation: 11/10 20:28 Chief complaint: Patient states: LOW BACK PAIN ONSET FRIDAY. PT STATES THAT HE FELT cm10 SOMETHING GIVE OUT AND FELL. Coronavirus screen: Client denies travel out of the [place] in the last 14 days. Ebola Screen: Patient denies travel to an Ebola-affected area in the 21 days before illness onset. Initial Sepsis Screen: Does the patient meet any 2 criteria? HR > 90 bpm. Does the patient have a suspected source of infection? No. Patient's initial sepsis screen is negative. Risk Assessment: Do you want to hurt yourself or someone else? Patient reports no desire to harm self or others. Onset of symptoms was November 07, 2024. 20:28 Method Of Arrival: Ambulatory cm10 20:28 Acuity: LUCY 3 cm10 Triage Assessment: 20:28 General: Appears uncomfortable, Behavior is calm, cooperative. Pain: Complains of pain cm10 in back Pain currently is 10 out of 10 on a pain scale. Neuro: No deficits noted. Level of Consciousness is awake, alert, obeys commands, Oriented to person, place, time, situation, Appropriate for age. Respiratory: No deficits noted. Airway is patent Respiratory effort is even, unlabored, Respiratory pattern is regular, symmetrical. Historical: - Allergies: 20:27 No Known Allergies; cm10 - PMHx: 20:27 gallbladder problems; cm10 - PSHx: 20:27 Appendectomy; cm10 - Immunization history:: Adult Immunizations up to date. - Infectious Disease History:: Denies. - Social history:: Smoking status: unknown. Screenin:30 [facility] ED Fall Risk Assessment (Adult) History of falling in the last 3 months, kj2 including since admission No falls in past 3 months (0 pts) Confusion or Disorientation No (0 pts) Intoxicated or Sedated No (0 pts) Impaired Gait No (0 pts) Mobility Assist Device Used No (0 pt) Altered Elimination No (0 pt) Score/Fall Risk Level 0 - 2 = Low Risk Maintained a safe environment, Hourly rounding (assess needs \T\ fall precautionary measures) done. Abuse screen: Denies threats or abuse. Denies injuries from another. Nutritional screening: No deficits noted. Tuberculosis screening: No symptoms or risk factors identified. Assessment: 21:30 General: Appears in no apparent distress. Behavior is calm, cooperative. Pain: kj2 Complains of pain in back. 21:30 Neuro: Level of Consciousness is awake, alert, obeys commands, Oriented to person, kj2 place, time, situation. Cardiovascular: Patient's skin is warm and dry. Respiratory: Airway is patent Respiratory effort is even, unlabored. GI: No signs and/or symptoms were reported involving the gastrointestinal system. : No signs and/or symptoms were reported regarding the genitourinary system. 22:32 Reassessment: Patient appears in no apparent distress at this time. Patient and/or kj2 family updated on plan of care and expected duration. Pain level reassessed. Patient is alert, oriented x 3, equal unlabored respirations, skin warm/dry/pink. 23:45 Reassessment: Patient appears in no apparent distress at this time. Patient and/or kj2 family updated on plan of care and expected duration. Pain level reassessed. Patient is alert, oriented x 3, equal unlabored respirations, skin warm/dry/pink. Vital Signs: 20:28 BP 145 / 106; Pulse 94; Resp 18; Temp 98.2(O); Pulse Ox 100% on R/A; Weight 89.81 kg; cm10 Height 5 ft. 8 in. ; Pain 10/10; 22:32 BP 124 / 76; Pulse 90; Resp 18; Pulse Ox 100% on R/A; kj2 23:45 BP 131 / 72; Pulse 72; Resp 18; Temp 98.2; Pulse Ox 100% on R/A; kj2 20:28 Body Mass Index 30.11 (89.81 kg, 172.72 cm) cm10 20:28 Pain Scale: Adult cm10 ED Course: 20:16 Patient arrived in ED. im 20:28 Arm band placed on right wrist. Patient placed in waiting room. cm10 20:29 Triage completed. cm10 20:33 Shaina Leal PA-C is PHCP. sb4 20:33 Farhat Pinedo MD is Attending Physician. sb4 21:29 CT Lumbar Spine Wo Con In Process Unspecified. EDMS 21:45 Patient has correct armband on for positive identification. Bed in low position. Call kj2 light in reach. Provided Education on: call light. 21:46 Sara Carlos, RN is Primary Nurse. kj2 22:32 No provider procedures requiring assistance completed. kj2 23:46 Patient did not have IV access during this emergency room visit. kj2 Administered Medications: 22:01 Drug: Ketorolac IM 30 mg IM once Route: IM; Site: right deltoid; kj2 23:44 Follow up: Response: No adverse reaction kj2 22:01 Drug: Dexamethasone IM 10 mg IM once Route: IM; Site: left deltoid; kj2 23:44 Follow up: Response: No adverse reaction kj2 22:01 Drug: Diazepam PO 5 mg PO once Route: PO; kj2 23:44 Follow up: Response: No adverse reaction kj2 23:50 Drug: HYDROcodone-acetaminophen PO 5 mg-325 mg 1 tabs PO once Route: PO; kj2 23:50 Follow up: Response: No adverse reaction; Medication administered at discharge. kj2 Medication: 21:30 VIS not applicable for this client. kj2 Outcome: 23:38 Discharge ordered by MD. sb4 23:45 Discharged to home ambulatory, kj2 23:45 Condition: stable 23:45 Discharge instructions given to patient, Instructed on discharge instructions, follow up and referral plans. Demonstrated understanding of instructions, follow-up care, medications, Prescriptions given X 23:50 Patient left the ED. kj2 Signatures: Dispatcher [employer] EDShaina Stack PA-C PAJessy sb4 Jannette Brice Clarissa, RN RN cm10 Sara Carlos, RN RN kj2
[2024-11-10] MEDS ORDERED: HYDROCODONE/APAP 5/325 MG TAB ONE (23:42)
[2024-11-11 03:06] VITALS: TEMP 98.2; O2SAT 100
[2024-11-11 03:09] VITALS: BP 131/72
== END 2024-11-10 23:50 | disposition home or self-care (01) ==
LOC: ER 20:14
DX: S39.012A Strain of muscle, fascia and tendon of lower back, initial encounter (principal)
CPT/HCPCS: 72131; J1100

== ENCOUNTER 2024-12-27 15:52 | Emergency (ER) | payer SELFPAY ==
--- NOTE | 2024-12-27 16:34 | RAD REPORT ---
EXAM: CT brain without contrast HISTORY: Numbness. COMPARISON: 2009 TECHNIQUE: Multiple contiguous axial images were obtained and a CT of the brain without contrast. Sagittal and coronal reformats were performed. Automated exposure control, adjustment of the mA and/or kV according to patient size, and/or itera tive reconstruction. Unless otherwise specified, incidental findings do not require dedicated imaging follow-u FINDINGS: An intracranial bleed is not seen Ventricles are normal caliber No extra-axial fluid collection noted No significant hypodensity within the brain No fluid within the visualized sinuses or mastoids noted. IMPRESSION: No acute intracranial abnormality noted. If the patient's symptoms persist MRI of the brain would be recommended. from the emergency room was notified at 4:30 PM December 27, 2024
[2024-12-27 16:39] LABS: Absolute Eosinophils 0.1 K/uL (0-0.5); Absolute Monocytes 0.8 K/uL (0.1-1.3); Absolute Neutrophil 5.1 K/uL (1.8-8.0); Basophils % 0.5 % (0-1.3); Eosinophils % 0.8 % (0-4.4); Hematocrit 46.4 % (39.6-49.0); Hemoglobin 16.1 g/dL (13.6-17.9); Lymphocytes % 33.6 % (15.3-44.8); MCH 29.2 pg (27.0-35.0); MCHC 34.7 g/dL (32.0-36.0); MCV 84.3 fL (80-100); MPV 8.6 fL (7.6-11.3); Monocytes % 8.8 % (3.3-12.3); Neutrophils % 56.3 % (41.7-73.7); Platelets 310 thou/uL (152-406); RBC Red Blood Cell Count 5.51 M/uL (4.33-5.43); Red Cell Distribution Width 13.2 % (12.1-15.2)
[2024-12-27 16:52] LABS: PT Prothrombin Time 11.8 SECONDS (10-13.0); PTT, Activated Partial Thromb 31.9 SECONDS (27.2-37.4); Protime INR 1.04
[2024-12-27 16:57] LABS: Anion Gap 8.1 mEq/L (5.0-15.0); BUN Blood Urea Nitrogen 9 mg/dL (7-18); Bicarbonate 29 mEq/L (21-32); Glomerular Filtration Rate 98 ml/min (=/>90); Glucose Level 102 mg/dL (74-106); Potassium 4.1 mEq/L (3.5-5.1); Sodium Level 135 mEq/L (136-145)
[2024-12-27 16:58] LABS: Troponin High Sensitivity < 3.0 pg/mL (<58.9)
--- NOTE | 2024-12-27 16:59 | RAD REPORT ---
EXAMINATION: CTA HEAD CLINICAL INDICATION: Numbness TECHNIQUE: Axial CT images were obtained through the head after 100 cc Isovue-370 intravenous contras t utilizing angiographic protocol with 3D post-processing (maximum intensity projection images, volume rendered images and/or shaded surface rendered images). One or more of the following dose red uction techniques were used: Automated exposure control, adjustment of the mA and/or kV according to patient size, and/or iterative reconstruction. Unless otherwise specified, incidental findings do not require dedicated imaging follow-up. COMPARISON: None FINDINGS: Distal internal carotid, basilar, anterior cerebral, middle cerebral and posterior cerebral arteries do not demonstrate a significant stenosis An aneurysm not noted. No large vessel occlusion IMPRESSION: No acute vascular abnormality displayed
--- NOTE | 2024-12-27 16:59 | RAD REPORT ---
EXAMINATION: Neck Angio CLINICAL INDICATION: Numbness TECHNIQUE: Axial CT images were obtained from the aortic arch to the skull base after intravenous adm inistration of 100 cc Isovue-370 utilizing angiographic protocol. Multiplanar reformats, as well as 3D post-processing (maximum intensity projection images, volume rendered images and/or shaded surface rendered images) were generated and reviewed. One or more of the following dose reduction techniques were used: Automated exposure control, adjustment of the mA and/or kV according to patient size, and/or iterative reconstruction. Unless otherwise specified, incidental findings do not require dedicated imaging follow-up. COMPARISON: No prior exam. FINDINGS: The visualized aortic arch and great vessels do not demonstrate a significant abnormality Common carotid, internal carotid and external carotid arteries bilaterally unremarkable Distal right vertebral artery hypoplastic. Vertebral arteries appear unremarkable. No significant stenosis noted. A dissection is not seen. Methods for NASCET criteria: Mild stenosis, 0% to 49%; Moderate stenosis 50% to 69%; Severe stenosis, 70% to 99% IMPRESSION: No acute vascular abnormality displayed If the patient continues to have symptoms to suggest an acute infarction then MRI brain would be stephane mmended
[2024-12-27] MEDS ORDERED: NA CHLORIDE 0.9% 1,000 ML ONE (17:04)
[2024-12-27] MEDS ORDERED: ASPIRIN 325 MG TAB ONE (17:04)
[2024-12-27] MEDS ORDERED: MECLIZINE HCL 12.5 MG TAB ONE (17:04)
--- NOTE | 2024-12-27 17:07 | RAD REPORT ---
Procedure: Chest Single View HISTORY: Chest pain COMPARISON: 2009 FINDINGS: The lungs appear clear of acute infiltrate. No significant pleural effusion noted. The heart is normal size. IMPRESSION: No acute abnormality is displayed.
--- NOTE | 2024-12-27 17:17 | ER ---
Nurse's Notes [facility] Name: Alpesh Lancaster Age: 34 yrs Sex: Male : 1990 Arrival Date: 12/27/2024 Time: 15:52 Bed 12 Private MD: Diagnosis: Paresthesia of skin Presentation: 12/27 16:15 Chief complaint: Patient states: he is having left arm and left leg weakness and numb ap3 feelings that started as he woke up this morning. patient reports his LNW was at 0100 this morning before he went to bed. patient also complains of left chest pain. Coronavirus screen: At this time, the client does not indicate any symptoms associated with coronavirus-19. Ebola Screen: No symptoms or risks identified at this time. Initial Sepsis Screen: Does the patient meet any 2 criteria? HR > 90 bpm. Does the patient have a suspected source of infection? No. Patient's initial sepsis screen is negative. Risk Assessment: Do you want to hurt yourself or someone else? Patient reports no desire to harm self or others. Onset of symptoms was December 27, 2024 at 01:00. Transition of care: patient was not received from another setting of care. 16:15 Method Of Arrival: Ambulatory ap3 16:15 Acuity: LUCY 2 ap3 17:10 No acute neurological deficit is noted. Pre-hospital glucose is not applicable to this dd2 patient. Triage Assessment: 16:18 General: Appears in no apparent distress. Behavior is calm, cooperative, appropriate ap3 for age. Pain: Complains of pain in left lateral anterior chest. Neuro: Level of Consciousness is awake, alert, obeys commands, Oriented to person, place, time, situation, Reports numbness in left arm and left leg weakness in left arm and left leg. Cardiovascular: Patient's skin is warm and dry. Respiratory: Airway is patent Respiratory effort is even, unlabored, Respiratory pattern is regular, symmetrical. 16:29 The onset of the patients symptoms was more than six hours ago. dd2 16:29 The onset of the patients symptoms was December 27, 2024 at 01:00. dd2 Stroke Activation: Physician: ED Attending; Name: MD AMANDA; Notified At: 16:15; Arrived At: 16:15 Physician: Mid-Level Provider; Name: ; Notified At: 16:15; Arrived At: Physician: [not used]; Name: ; Notified At: ; Arrived At: Physician: [not used]; Name: ; Notified At: ; Arrived At: Physician: [not used]; Name: ; Notified At: ; Arrived At: Historical: - Allergies: 16:17 No Known Allergies; ap3 - Home Meds: 16:17 None [Active]; ap3 - PMHx: 16:17 gallbladder problems; ap3 - PSHx: 16:17 Appendectomy; ap3 - Immunization history:: Adult Immunizations unknown. - Infectious Disease History:: Denies. - Social history:: Smoking status: Patient reports the use of cigarette tobacco products, Patient reports use of chewing tobacco. Reported history of juuling and/or vaping. Patient uses alcohol, occasionally. admits to "couple of beers" a day. - Family history:: not pertinent. - Hospitalizations: : No recent hospitalization is reported. Screenin:19 Abuse screen: Denies threats or abuse. Nutritional screening: No deficits noted. ap3 Tuberculosis screening: No symptoms or risk factors identified. 16:44 [facility] ED Fall Risk Assessment (Adult) History of falling in the last 3 months, dd2 including since admission No falls in past 3 months (0 pts) Confusion or Disorientation No (0 pts) Intoxicated or Sedated No (0 pts) Impaired Gait No (0 pts) Mobility Assist Device Used No (0 pt) Altered Elimination No (0 pt) Score/Fall Risk Level 0 - 2 = Low Risk Oriented to surroundings, Maintained a safe environment, Educated pt \\T\\ family on fall prevention, incl call for assistance when getting out of bed, Assessed \\T\\ reinforced patient's understanding of fall precautions, Hourly rounding (assess needs \\T\\ fall precautionary measures) done. 16:45 [place] Swallow Protocol Exclusion Criteria: Unable to remain alert for testing: No NPO dd2 for medical/surgical reason by provider order No Tracheostomy tube present No No thin liquids due to preexisting dysphagia/baseline modified diet thickened liquids No Exclusion Criteria Result: Proceed Brief Cognitive Screen What is your name? Normal, Where are you right now? Normal, What year is it? Normal. Oral Mechanism Examination Facial Symmetry: Normal, Motion: Normal, Lip Closure: Normal, Oral Mechanism Result: Normal. 3 oz Water Swallow Challenge: Pt able to drink all water without stopping, coughing, choking or throat clearing: Yes Result: PASS MD Notified: Serafin Alcala MD. Assessment: 16:15 General: code stroke called. ap3 16:19 General: patient transported to CT via stretcher with MELLISA Jay. ap3 16:26 General: Appears in no apparent distress. comfortable, Behavior is calm, cooperative, dd2 appropriate for age. Pain: Complains of pain in chest Pain does not radiate. Pain currently is 3 out of 10 on a pain scale. Quality of pain is described as aching, Pain began suddenly. Neuro: Level of Consciousness is awake, alert, obeys commands, Oriented to person, place, time, situation, Appropriate for age Marketing Program Manager are equal bilaterally Moves all extremities. Gait is steady, Speech is normal, Facial symmetry appears normal, Pupils are PERRLA, Numbness in left leg and left arm Reports numbness in left leg and left arm. Cardiovascular: Reports chest pain, Heart tones S1 S2 present JVD is absent Patient's skin is warm and dry. Rhythm is sinus rhythm Chest pain is described as mild. Respiratory: No deficits noted. Airway is patent Respiratory effort is even, unlabored, Respiratory pattern is regular, symmetrical. GI: No deficits noted. No signs and/or symptoms were reported involving the gastrointestinal system. Abdomen is round non-distended, Abd is soft and non tender X 4 quads. : No deficits noted. No signs and/or symptoms were reported regarding the genitourinary system. EENT: No deficits noted. No signs and/or symptoms were reported regarding the EENT system. Derm: No deficits noted. No signs and/or symptoms reported regarding the dermatologic system. Musculoskeletal: Circulation, motion, and sensation intact. Range of motion: intact in all extremities, Reports numbness in left leg and left arm. 16:45 VAN Scoring: Arm Drift: Patients demonstrates NO arm weakness. Patient is VAN Negative. dd2 Visual Disturbance: No visual disturbance noted. Aphasia: No aphasia noted. Neglect: No neglect noted. [place] Swallow Protocol Exclusion Criteria: Exclusion Criteria Result: Proceed Brief Cognitive Screen What is your name? Normal, Where are you right now? Normal, What year is it? Normal. Oral Mechanism Examination Facial Symmetry: Normal, Motion: Normal, Lip Closure: Normal, Oral Mechanism Result: Normal. 3 oz Water Swallow Challenge: Pt able to drink all water without stopping, coughing, choking or throat clearing: Yes Result: PASS MD Notified: Serafin Alcala MD. TNKase (Tenecteplase) Screening: Indications: Definite evidence of stroke, ischemic, embolic, or hypertensive: No. Treatment will start within 4.5 hours onset of symptoms: No. No evidence of intracranial hemorrhage or CT of head and no evidence of peripheral hemorrhage or recent CVA: Yes. Contraindications: Patient reports onset of signs and symptoms of stroke greater than 6 hours ago: Yes. Vital Signs: 16:15 BP 145 / 98; Pulse 103; Resp 18; Temp 98.3(O); Pulse Ox 99% on R/A; Weight 92.99 kg; ap3 Height 5 ft. 7 in. ; 16:26 BP 139 / 83; Pulse 99; Resp 16; Pulse Ox 99% on R/A; dd2 16:56 BP 133 / 84; Pulse 86; Resp 16; Pulse Ox 98% on R/A; dd2 17:26 BP 135 / 83; Pulse 87; Resp 17; Temp 98.3; Pulse Ox 99% on R/A; dd2 16:15 Body Mass Index 32.11 (92.99 kg, 170.18 cm) ap3 Coram Coma Score: 16:44 Eye Response: spontaneous(4). Motor Response: obeys commands(6). Verbal Response: dd2 oriented(5). Total: 15. NIH Stroke Scale Scores: 16:26 NIHSS Score: 1 dd2 16:26 NIHSS Score: 1 dd2 17:16 NIHSS Score: 1 engineering intern Course: 15:54 Patient arrived in ED. im 16:01 Serafin Alcala MD is Attending Physician. rn 16:17 Triage completed. ap3 16:18 Patient has correct armband on for positive identification. Bed in low position. Call ap3 light in reach. Side rails up X 1. Client placed on continuous cardiac and pulse oximetry monitoring. NIBP monitoring applied. children's program coordinator on. Pulse ox on. NIBP on. 16:19 Arm band placed on right wrist. ap3 16:26 Door closed. Noise minimized. Pillow given. Verbal reassurance given. dd2 16:26 No provider procedures requiring assistance completed. dd2 16:28 CT Stroke Brain w/o Contrast In Process Unspecified. EDMS 16:30 CT Head Angio In Process Unspecified. EDMS 16:30 CT Neck Angio In Process Unspecified. EDMS 16:33 IRINEO ROSENBERG, RN is Primary Nurse. dd2 16:34 Basic Metabolic Panel Sent. dd2 16:34 CBC with Diff Sent. dd2 16:34 High Sensitivity Troponin Sent. dd2 16:36 Stroke CXR 1 View In Process Unspecified. EDMS 16:44 Initial lab(s) drawn, by me, sent to lab. Inserted saline lock: 20 gauge in right dd2 antecubital area, using aseptic technique. Blood collected. Flushed with 10 mL NS. Patient maintains SpO2 saturation greater than 95% on room air. 16:59 EKG done, by ED staff, reviewed by Serafin Alcala MD. dd2 17:33 Provided Education on: D/C EDUCATION. dd2 17:33 IV discontinued, intact, bleeding controlled, No redness/swelling at site. Pressure dd2 dressing applied. Administered Medications: 17:11 Drug: NS 0.9% IV 1000 ml IV at 1000 ml once; to be given as a bolus over 60 minutes dd2 Route: IV; Rate: 1000 ml; Site: right antecubital; 17:34 Follow up: IV Status: Completed infusion dd2 17:11 Drug: Meclizine PO 50 mg PO once Route: PO; dd2 17:34 Follow up: Response: No adverse reaction dd2 17:11 Drug: Aspirin PO 325 mg PO once Route: PO; dd2 17:34 Follow up: Response: No adverse reaction dd2 Medication: 16:44 VIS not applicable for this client. dd2 Point of Care Testing: Blood Glucose: 16:45 Blood Glucose: 85 mg/dL; dd2 Ranges: Outcome: 17:16 Discharge ordered by . rn 17:33 Discharged to home ambulatory, dd2 17:33 Condition: stable 17:33 Discharge instructions given to patient, Instructed on discharge instructions, follow up and referral plans. Demonstrated understanding of instructions, follow-up care, 17:35 Patient left the ED. dd2 NIH Stroke Scale - NIH Stroke Score Date: 12/27/2024 Time: 16:26 Total Score = 1 10. Dysarthria (speech clarity - read or repeat words) - 0(Normal) 11. Extinction and Inattention (visual/tactile/auditory/spatial/personal) - 0(No abnormality) 1a. Level of Consciousness (LOC) - 0(Alert) 1b. Level of Consciousness (LOC) (Month \\T\\ Age) - 0(Both) 1c. LOC Commands (Open \\T\\ Closes Eyes/Sheet Pile Driver Operator) - 0(Both) 2. Best Gaze (Lateral Gaze Paresis) - 0(Normal) 3. Visual Field Loss - 0(No visual loss) 4. Facial Palsy - 0(Normal) 5a. Left Arm: Motor (10-second hold) - 0(No drift) 5b. Right Arm: Motor (10-second hold) - 0(No drift) 6a. Left Leg: Motor (5-second hold - always test supine) - 0(No drift) 6b. Right Leg: Motor (5-second hold - always test supine) - 0(No drift) 7. Limb Ataxia (finger/nose \\T\\ heel/vazquez - test with eyes open) - 0(Absent) 8. Sensory Loss (pinprick arms/legs/face) - 1(Mild to moderate loss) 9. Best Language: Aphasia (description/naming/reading) - 0(No aphasia) Initials: dd2 NIH Stroke Scale - NIH Stroke Score Date: 12/27/2024 Time: 16:26 Total Score = 1 10. Dysarthria (speech clarity - read or repeat words) - 0(Normal) 11. Extinction and Inattention (visual/tactile/auditory/spatial/personal) - 0(No abnormality) 1a. Level of Consciousness (LOC) - 0(Alert) 1b. Level of Consciousness (LOC) (Month \\T\\ Age) - 0(Both) 1c. LOC Commands (Open \\T\\ Closes Eyes/Sheet Pile Driver Operator) - 0(Both) 2. Best Gaze (Lateral Gaze Paresis) - 0(Normal) 3. Visual Field Loss - 0(No visual loss) 4. Facial Palsy - 0(Normal) 5a. Left Arm: Motor (10-second hold) - 0(No drift) 5b. Right Arm: Motor (10-second hold) - 0(No drift) 6a. Left Leg: Motor (5-second hold - always test supine) - 0(No drift) 6b. Right Leg: Motor (5-second hold - always test supine) - 0(No drift) 7. Limb Ataxia (finger/nose \\T\\ heel/vazquez - test with eyes open) - 0(Absent) 8. Sensory Loss (pinprick arms/legs/face) - 1(Mild to moderate loss) 9. Best Language: Aphasia (description/naming/reading) - 0(No aphasia) Initials: dd2 NIH Stroke Scale - NIH Stroke Score Date: 12/27/2024 Time: 17:16 Total Score = 1 10. Dysarthria (speech clarity - read or repeat words) - 0(Normal) 11. Extinction and Inattention (visual/tactile/auditory/spatial/personal) - 0(No abnormality) 1a. Level of Consciousness (LOC) - 0(Alert) 1b. Level of Consciousness (LOC) (Month \\T\\ Age) - 0(Both) 1c. LOC Commands (Open \\T\\ Closes Eyes/Sheet Pile Driver Operator) - 0(Both) 2. Best Gaze (Lateral Gaze Paresis) - 0(Normal) 3. Visual Field Loss - 0(No visual loss) 4. Facial Palsy - 0(Normal) 5a. Left Arm: Motor (10-second hold) - 0(No drift) 5b. Right Arm: Motor (10-second hold) - 0(No drift) 6a. Left Leg: Motor (5-second hold - always test supine) - 0(No drift) 6b. Right Leg: Motor (5-second hold - always test supine) - 0(No drift) 7. Limb Ataxia (finger/nose \\T\\ heel/vazquez - test with eyes open) - 0(Absent) 8. Sensory Loss (pinprick arms/legs/face) - 1(Mild to moderate loss) 9. Best Language: Aphasia (description/naming/reading) - 0(No aphasia) Initials: rn Signatures: Dispatcher [employer] Serafin Mckeon MD MD rn Prokisch, Amanda, RN RN ap3 Jannette Brice DIANA RN RN dd2
--- NOTE | 2024-12-27 17:17 | EDPHYS ---
Physician Documentation [facility] Name: Alpesh Lancaster Age: 34 yrs Sex: Male : 1990 Arrival Date: 12/27/2024 Time: 15:52 Bed 12 Private MD: ED Physician Serafin Alcala HPI: 12/27 16:25 This 34 yrs old Male presents to ER via Ambulatory with complaints of Dizziness, rn Numbness Of Arm, Numbness - of leg. 16:25 The patient presents with dizziness. Onset: The symptoms/episode began/occurred at an rn unknown time. Modifying factors: The symptoms are alleviated by nothing, the symptoms are aggravated by nothing. Severity of symptoms: At their worst the symptoms were mild in the emergency department the symptoms are unchanged. The patient has not experienced similar symptoms in the past. Patient reports left arm and left leg numbness. Woke up with the symptoms immediately noticed him. Last known normal was when he went to bed at 1 or 2 AM. No fever or chills. No trauma. Has never happened before. Patient reports drinks often but last drink was Friday and does not drink daily. Patient reports he feels dizzy and lightheaded. When he woke up he had trouble walking but has since improved and was able to drive himself here. No chest pain or shortness of breath. No abdominal or back pain.. Historical: - Allergies: 16:17 No Known Allergies; ap3 - Home Meds: 16:17 None [Active]; ap3 - PMHx: 16:17 gallbladder problems; ap3 - PSHx: 16:17 Appendectomy; ap3 - Immunization history:: Adult Immunizations unknown. - Infectious Disease History:: Denies. - Social history:: Smoking status: Patient reports the use of cigarette tobacco products, Patient reports use of chewing tobacco. Reported history of juuling and/or vaping. Patient uses alcohol, occasionally. admits to "couple of beers" a day. - Family history:: not pertinent. - Hospitalizations: : No recent hospitalization is reported. ROS: 16:25 Constitutional: Negative for fever, chills, and weight loss, Neck: Negative for injury, rn pain, and swelling, Cardiovascular: Negative for chest pain, palpitations, and edema, Respiratory: Negative for shortness of breath, cough, wheezing, and pleuritic chest pain, Abdomen/GI: Negative for abdominal pain, nausea, vomiting, diarrhea, and constipation, Back: Negative for injury and pain, MS/Extremity: Negative for injury and deformity, Skin: Negative for injury, rash, and discoloration, Neuro: Negative for headache, and seizure, Exam: 16:25 Constitutional: This is a well developed, well nourished patient who is awake, alert, rn and in no acute distress. Eyes: Pupils equal round and reactive to light, extra-ocular motions intact. Lids and lashes normal. Conjunctiva and sclera are non-icteric and not injected. Cornea within normal limits. Periorbital areas with no swelling, redness, or edema. ENT: Dry mucous membranes Cardiovascular: Tachycardic, regular. No pulse deficits. Respiratory: No increased work of breathing, no retractions or nasal flaring. Abdomen/GI: Soft, nontender Neuro: Awake and alert, GCS 15, oriented to person, place, time, and situation. Cranial nerves II-XII grossly intact. 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 Decreased sensation left arm but normal sensation in left leg. 17:31 ECG was reviewed by the Attending Physician. rn Vital Signs: 16:15 BP 145 / 98; Pulse 103; Resp 18; Temp 98.3(O); Pulse Ox 99% on R/A; Weight 92.99 kg; ap3 Height 5 ft. 7 in. ; 16:26 BP 139 / 83; Pulse 99; Resp 16; Pulse Ox 99% on R/A; dd2 16:56 BP 133 / 84; Pulse 86; Resp 16; Pulse Ox 98% on R/A; dd2 17:26 BP 135 / 83; Pulse 87; Resp 17; Temp 98.3; Pulse Ox 99% on R/A; dd2 16:15 Body Mass Index 32.11 (92.99 kg, 170.18 cm) ap3 NIH Stroke Scale Scores: 16:26 NIHSS Score: 1 dd2 16:26 NIHSS Score: 1 dd2 17:16 NIHSS Score: 1 rn Rydal Coma Score: 16:44 Eye Response: spontaneous(4). Motor Response: obeys commands(6). Verbal Response: dd2 oriented(5). Total: 15. MDM: 16:01 Medical Screening Exam initiated rn 16:33 ED course: Dr. Moody called, no acute findings in CT stroke head.. rn 17:01 Counseling: I had a detailed discussion with the patient and/or guardian regarding rn smoking cessation. 17:02 Counseling: I had a detailed discussion with the patient and/or guardian regarding the rn presence of at least one elevated blood pressure reading (>120/80) during this emergency department visit. Special discussion: I have referred the patient to see his PCP for further evaluation of high blood pressure. 17:12 Differential diagnosis: cardiac arrhythmia, CVA, generalized weakness, rn hyperventilation, hypovolemia, idiopathic dizziness, TIA, vertigo. Data reviewed: vital signs, nurses notes, lab test result(s), EKG, radiologic studies, CT scan, plain films, and as a result, I will discharge patient. Response to treatment: the patient's symptoms have mildly improved after treatment, and as a result, I will discharge patient. ED course: No acute findings and imaging including CT head/CT head angio/CT neck angio. No lab abnormalities. Patient states feels a little better and would like to go home. Will discharge home and recommend smoking cessation. No clear etiology of his symptoms but symptoms have improved. Recommend neurology follow-up and given return precautions.. 12/27 16:15 Order name: Basic Metabolic Panel; Complete Time: 17:01 rn 12/27 16:15 Order name: CBC with Diff; Complete Time: 17: rn 12/27 16:15 Order name: High Sensitivity Troponin; Complete Time: 17:01 rn 12/27 16:15 Order name: Protime (+inr); Complete Time: 17:01 rn 12/27 16:15 Order name: Ptt, Activated; Complete Time: 17:01 rn 12/27 16:54 Order name: Glucose, Ancillary Testing; Complete Time: 17:01 EDMS 12/27 16:15 Order name: CT Head Angio; Complete Time: 17:01 rn 12/27 16:15 Order name: CT Neck Angio; Complete Time: 17: rn 12/27 16:15 Order name: CT Stroke Brain w/o Contrast; Complete Time: 16:36 rn 12/27 16:15 Order name: Stroke CXR 1 View; Complete Time: 17:08 rn 12/27 16:15 Order name: Accucheck; Complete Time: 16:42 rn 12/27 16:15 Order name: Cardiac monitoring; Complete Time: 16:19 rn 12/27 16:15 Order name: EKG - Nurse/Tech; Complete Time: 16:59 rn 12/27 16:15 Order name: IV Saline Lock; Complete Time: 16:33 rn 12/27 16:15 Order name: Labs collected and sent; Complete Time: 16:33 rn 12/27 16:15 Order name: NPO; Complete Time: 16:33 rn 12/27 16:15 Order name: O2 Per Protocol; Complete Time: 16:19 rn 12/27 16:15 Order name: O2 Sat Monitoring; Complete Time: 16:19 rn 12/27 16:15 Order name: Stroke Swallow Screen; Complete Time: 17:18 rn EC:31 Rate is 90 beats/min. Rhythm is regular. QRS [place] is Normal. GA interval is normal. QRS rn interval is normal. QT interval is normal. No Q waves. T waves are Normal. No ST changes noted. Clinical impression: NSR w/ Non-specific ST/T Changes. Interpreted by me. Reviewed by me. Administered Medications: 17:11 Drug: NS 0.9% IV 1000 ml IV at 1000 ml once; to be given as a bolus over 60 minutes dd2 Route: IV; Rate: 1000 ml; Site: right antecubital; 17:34 Follow up: IV Status: Completed infusion dd2 17:11 Drug: Meclizine PO 50 mg PO once Route: PO; dd2 17:34 Follow up: Response: No adverse reaction dd2 17:11 Drug: Aspirin PO 325 mg PO once Route: PO; dd2 17:34 Follow up: Response: No adverse reaction dd2 Point of Care Testing: Blood Glucose: 16:45 Blood Glucose: 85 mg/dL; dd2 Ranges: Critical Glucose Levels:Adult <50 mg/dl or >400 mg/dl <40 mg/dl or >180 mg/dl Disposition Summary: 12/27/24 17:16 Discharge Ordered Notes: Location: Home rn Problem: new rn Symptoms: have improved rn Condition: Stable rn Diagnosis - Paresthesia of skin rn Followup: rn - With: Private Physician - When: As needed - Reason: Recheck today's complaints, Re-evaluation by your physician Discharge Instructions: - Discharge Summary Sheet rn - Paresthesia rn Forms: - Medication Reconciliation Form rn - Antibiotic health information internship - Prescription Opioid Use rn - Patient Portal Instructions rn - Leadership Thank You Letter rn NIH Stroke Scale - NIH Stroke Score Date: 12/27/2024 Time: 16:26 Total Score = 1 10. Dysarthria (speech clarity - read or repeat words) - 0(Normal) 11. Extinction and Inattention (visual/tactile/auditory/spatial/personal) - 0(No abnormality) 1a. Level of Consciousness (LOC) - 0(Alert) 1b. Level of Consciousness (LOC) (Month \\T\\ Age) - 0(Both) 1c. LOC Commands (Open \\T\\ Closes Eyes/Natural Sciences Department Chair) - 0(Both) 2. Best Gaze (Lateral Gaze Paresis) - 0(Normal) 3. Visual Field Loss - 0(No visual loss) 4. Facial Palsy - 0(Normal) 5a. Left Arm: Motor (10-second hold) - 0(No drift) 5b. Right Arm: Motor (10-second hold) - 0(No drift) 6a. Left Leg: Motor (5-second hold - always test supine) - 0(No drift) 6b. Right Leg: Motor (5-second hold - always test supine) - 0(No drift) 7. Limb Ataxia (finger/nose \\T\\ heel/vazquez - test with eyes open) - 0(Absent) 8. Sensory Loss (pinprick arms/legs/face) - 1(Mild to moderate loss) 9. Best Language: Aphasia (description/naming/reading) - 0(No aphasia) Initials: dd2 NIH Stroke Scale - NIH Stroke Score Date: 12/27/2024 Time: 16: Total Score = 1 10. Dysarthria (speech clarity - read or repeat words) - 0(Normal) 11. Extinction and Inattention (visual/tactile/auditory/spatial/personal) - 0(No abnormality) 1a. Level of Consciousness (LOC) - 0(Alert) 1b. Level of Consciousness (LOC) (Month \\T\\ Age) - 0(Both) 1c. LOC Commands (Open \\T\\ Closes Eyes/Natural Sciences Department Chair) - 0(Both) 2. Best Gaze (Lateral Gaze Paresis) - 0(Normal) 3. Visual Field Loss - 0(No visual loss) 4. Facial Palsy - 0(Normal) 5a. Left Arm: Motor (10-second hold) - 0(No drift) 5b. Right Arm: Motor (10-second hold) - 0(No drift) 6a. Left Leg: Motor (5-second hold - always test supine) - 0(No drift) 6b. Right Leg: Motor (5-second hold - always test supine) - 0(No drift) 7. Limb Ataxia (finger/nose \\T\\ heel/vazquez - test with eyes open) - 0(Absent) 8. Sensory Loss (pinprick arms/legs/face) - 1(Mild to moderate loss) 9. Best Language: Aphasia (description/naming/reading) - 0(No aphasia) Initials: dd2 NIH Stroke Scale - NIH Stroke Score Date: 12/27/2024 Time: 17:16 Total Score = 1 10. Dysarthria (speech clarity - read or repeat words) - 0(Normal) 11. Extinction and Inattention (visual/tactile/auditory/spatial/personal) - 0(No abnormality) 1a. Level of Consciousness (LOC) - 0(Alert) 1b. Level of Consciousness (LOC) (Month \\T\\ Age) - 0(Both) 1c. LOC Commands (Open \\T\\ Closes Eyes/Natural Sciences Department Chair) - 0(Both) 2. Best Gaze (Lateral Gaze Paresis) - 0(Normal) 3. Visual Field Loss - 0(No visual loss) 4. Facial Palsy - 0(Normal) 5a. Left Arm: Motor (10-second hold) - 0(No drift) 5b. Right Arm: Motor (10-second hold) - 0(No drift) 6a. Left Leg: Motor (5-second hold - always test supine) - 0(No drift) 6b. Right Leg: Motor (5-second hold - always test supine) - 0(No drift) 7. Limb Ataxia (finger/nose \\T\\ heel/vazquez - test with eyes open) - 0(Absent) 8. Sensory Loss (pinprick arms/legs/face) - 1(Mild to moderate loss) 9. Best Language: Aphasia (description/naming/reading) - 0(No aphasia) Initials: rn Signatures: Dispatcher [employer] Serafin Mckeon MD MD rn Prokisch, Amanda, RN RN ap3 IRINEO ROSENBERG RN RN dd2 Corrections: (The following items were deleted from the chart) 16:16 16:16 Head Angio+CT.RAD.BRZ ordered. EDMS EDMS 16:16 16:16 Neck Angio+CT.RAD.BRZ ordered. EDMS EDMS 16:16 16:16 CT-STROKE BRAIN W/O CONTRAST+CT.RAD.BRZ ordered. EDMS EDMS 16:16 16:16 Chest Single View+RAD.RAD.BRZ ordered. EDMS EDMS
[2024-12-27 22:44] VITALS: BP 145/98; TEMP 98.3; O2SAT 99
== END 2024-12-27 17:35 | disposition home or self-care (01) ==
LOC: ER 15:52
DX: R20.2 Paresthesia of skin (principal); R20.0 Anesthesia of skin
CPT/HCPCS: 36415; 70450; 70496; 70498; 71045; 80048; 82947; 84484; 85025; 85610; 85730; 93005; 99285; J7030; J8597; Q9967